=== PATIENT | female | born 1965 | race Caucasian/White ===

== ENCOUNTER 2018-09-02 19:57 | Emergency (ER) | payer OTHER ==
[2018-09-02] MEDS ORDERED: IPRATROPIUM BROM 0.5MG/2.5ML ONE (21:09)
[2018-09-02] MEDS ORDERED: NA CHLORIDE 0.9% 1,000 ML ONE (21:09)
[2018-09-02] MEDS ORDERED: ALBUTEROL 2.5 MG/3 ML NEB SOL ONE (21:09)
[2018-09-02] MEDS ORDERED: METHYLPREDNISOLONE 125 MG INJ ONE (21:09)
[2018-09-02 21:24] LABS: Absolute Lymphocytes (CBC) 2.9 K/uL (0.7-4.9); Absolute Monocytes 0.8 K/uL (0.1-1.3); Absolute Neutrophil 5.7 K/uL (1.8-8.0); Basophils % 0.4 % (0-1.3); Eosinophils % 2.3 % (0-4.4); Hematocrit 35.8 % (36.0-45.0); Lymphocytes % 29.9 % (15.3-44.8); MPV 8.2 fL (7.6-11.3); RBC Red Blood Cell Count 3.75 M/uL (3.86-4.86)
[2018-09-02 21:41] LABS: BUN Blood Urea Nitrogen 14 mg/dL (7-18); Bicarbonate 21 mmol/L (21-32); Glucose Level 99 mg/dL (74-106); Potassium 3.8 mmol/L (3.5-5.1); Sodium Level 142 mmol/L (136-145); Troponin (Emerg Dept Use Only) < 0.02 ng/mL (0.0-0.045)
--- NOTE | 2018-09-02 21:55 | RAD REPORT ---
EXAM DESCRIPTION: [place] Single View09/02/2018 9:11 pm CLINICAL HISTORY: Chest pain COMPARISON: none FINDINGS: A few areas of scarring or subsegmental atelectasis suspected within the right lung base. Left lung appears clear The heart is normal size
--- NOTE | 2018-09-02 22:04 | ER ---
Nurse's Notes [facility] Name: Scarlett Felton Age: 53 yrs Sex: Female : 1965 Arrival Date: 09/02/2018 Time: 19:58 Bed 26 Private MD: Suresh Saxena V Diagnosis: Bronchitis Presentation: 09/02 20:18 Presenting complaint: Patient states: Congestion and cough for 3 days. Transition of aj care: patient was not received from another setting of care. Onset of symptoms was August 30, 2018. Risk Assessment: Do you want to hurt yourself or someone else? Patient reports no desire to harm self or others. Initial Sepsis Screen: Does the patient meet any 2 criteria? No. Patient's initial sepsis screen is negative. Does the patient have a suspected source of infection? No. Patient's initial sepsis screen is negative. Care prior to arrival: None. 20:18 Method Of Arrival: Ambulatory aj 20:18 Acuity: ITALIA 3 aj Triage Assessment: 20:21 General: Appears in no apparent distress. comfortable, Behavior is calm, cooperative, aj appropriate for age. Pain: Denies pain. Neuro: Level of Consciousness is awake, alert, obeys commands, Oriented to person, place, time, situation, Appropriate for age. Respiratory: Reports cough that is Onset: The symptoms/episode began/occurred gradually, the patient has mild shortness of breath. Derm: Skin is intact, is healthy with good turgor, Skin is pink, warm \T\ dry. normal. 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 - Social history:: Smoking status: Patient uses tobacco products, smokes one pack cigarettes per day. - Ebola Screening: : Patient negative for fever greater than or equal to 101.5 degrees Fahrenheit, and additional compatible Ebola Virus Disease symptoms Patient denies exposure to infectious person Patient denies travel to an Ebola-affected area in the 21 days before illness onset No symptoms or risks identified at this time. Screenin:18 Abuse screen: Denies threats or abuse. Denies injuries from another. Nutritional rv screening: No deficits noted. Tuberculosis screening: No symptoms or risk factors identified. Fall Risk None identified. Assessment: 21:17 General: Appears in no apparent distress. comfortable, Behavior is calm, cooperative. rv Pain: Denies pain. Neuro: Level of Consciousness is awake, alert, obeys commands, Oriented to person, place, time, situation. Cardiovascular: Rhythm is regular. Respiratory: Airway is patent Respiratory effort is labored. GI: No signs and/or symptoms were reported involving the gastrointestinal system. : No signs and/or symptoms were reported regarding the genitourinary system. EENT: No signs and/or symptoms were reported regarding the EENT system. Derm: Skin is intact. Musculoskeletal: No signs and/or symptoms reported regarding the musculoskeletal system. 21:18 Respiratory: Breath sounds with wheezes bilaterally. rv 23:01 Reassessment: Patient appears in no apparent distress at this time. No changes from tl3 previously documented assessment. Patient and/or family updated on plan of care and expected duration. Pain level reassessed. Patient is alert, oriented x 3, equal unlabored respirations, skin warm/dry/pink. pt IV fluids complete. Vital Signs: 20:21 BP 144 / 76; Pulse 91; Resp 20; Temp 97.6; Pulse Ox 98% on R/A; Weight 74.84 kg; Height aj 5 ft. 4 in. (162.56 cm); 22:01 BP 105 / 57; Pulse 88; Resp 18; Pulse Ox 97% ; tl3 23:01 BP 118 / 80; Pulse 84; Resp 18; Pulse Ox 97% on R/A; tl3 20:21 Body Mass Index 28.32 (74.84 kg, 162.56 cm) ED Course: 19:58 Patient arrived in ED. al2 19:58 Suresh Saxena MD is Private Physician. al2 20:19 Triage completed. aj 20:21 Arm band placed on left wrist. Patient placed in an exam room. aj 20:38 Reji Vidales MD is Attending Physician. pkl 21:07 XRAY CXR (1 view) In Process Unspecified. EDMS 21:10 Initial lab(s) drawn, by me, sent to lab. Inserted saline lock: 22 gauge in right rv forearm, using aseptic technique. Blood collected. 21:18 Patient has correct armband on for positive identification. Bed in low position. Call rv light in reach. Side rails up X 1. Pulse ox on. NIBP on. 22:01 Pamela Sanchez, VICENTA is Primary Nurse. tl3 22:01 Suresh Saxena MD is Referral Physician. pkl 22:03 EKG done, by ED staff. tl3 23:01 Throat Culture Sent. tl3 23:01 No provider procedures requiring assistance completed. IV discontinued, intact, tl3 bleeding controlled, No redness/swelling at site. Pressure dressing applied. Administered Medications: 21:00 Drug: Albuterol - atroVENT (3:1) (2.5 mg - 0.5 mg) 3 ml Route: Nebulizer; rv 21:10 Drug: NS 0.9% 1000 ml Route: IV; Rate: 125 ml/hr; Site: right forearm; rv 23:00 Follow up: IV Status: Completed infusion; IV Intake: 1000ml tl3 21:10 Drug: SOLU-Medrol 125 mg Route: IVP; Site: right forearm; rv Intake: 23:00 IV: 1000ml; Total: 1000ml. tl3 Outcome: 22:02 Discharge ordered by . pkl 23:01 Discharged to home ambulatory. tl3 23:01 Condition: stable 23:01 Discharge instructions given to patient, Instructed on discharge instructions, follow up and referral plans. medication usage, Demonstrated understanding of instructions, follow-up care, medications, Prescriptions given X 2. 23:03 Patient left the ED. tl3 Signatures: Dispatcher [employer] EDMS Mar Montes De Oca RN Reji Yee MD MD pkl Charisma Weiss Tammy, VICENTA RN tl3 Matt Silva RN RN rv
--- NOTE | 2018-09-02 22:04 | EDPHYS ---
Physician Documentation [facility] Name: Scarlett Felton Age: 53 yrs Sex: Female : 1965 Arrival Date: 09/02/2018 Time: 19:58 Bed 26 Private MD: Suresh Saxena V ED Physician Reji Vidales HPI: 09/02 20:45 This 53 yrs old Female presents to ER via Ambulatory with complaints of Chest pkl Congestion, Productive Cough. 20:45 The patient or guardian reports cough, described as moderate, with no sputum. Onset: pkl The symptoms/episode began/occurred 3 day(s) ago. Associated signs and symptoms: Pertinent positives: chest pain, with cough. 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 - Social history:: Smoking status: Patient uses tobacco products, smokes one pack cigarettes per day. - Ebola Screening: : Patient negative for fever greater than or equal to 101.5 degrees Fahrenheit, and additional compatible Ebola Virus Disease symptoms Patient denies exposure to infectious person Patient denies travel to an Ebola-affected area in the 21 days before illness onset No symptoms or risks identified at this time. ROS: 20:45 Eyes: Negative for injury, pain, redness, and discharge. pkl 20:45 ENT: Positive for sore throat. 20:45 Neck: Negative for stiffness. 20:45 Cardiovascular: Positive for chest pain. 20:45 Respiratory: Positive for cough, with no reported sputum. 20:45 Abdomen/GI: Negative for abdominal pain, nausea, vomiting, and diarrhea. 20:45 Back: Negative for acute changes. 20:45 : Negative for urinary symptoms. 20:45 MS/extremity: Negative for acute changes. 20:45 Skin: Negative for rash. 20:45 Neuro: Negative for altered mental status. Exam: 20:45 Head/Face: Normocephalic, atraumatic. Eyes: Pupils equal round and reactive to light, pkl extra-ocular motions intact. Lids and lashes normal. Conjunctiva and sclera are non-icteric and not injected. Cornea within normal limits. Periorbital areas with no swelling, redness, or edema. ENT: Nares patent. No nasal discharge, no septal abnormalities noted. Tympanic membranes are normal and external auditory canals are clear. Oropharynx with no redness, swelling, or masses, exudates, or evidence of obstruction, uvula midline. Mucous membranes moist. Neck: Trachea midline, no thyromegaly or masses palpated, and no cervical lymphadenopathy. Supple, full range of motion without nuchal rigidity, or vertebral point tenderness. No Meningismus. Chest/axilla: Normal chest wall appearance and motion. Nontender with no deformity. No lesions are appreciated. Cardiovascular: Regular rate and rhythm with a normal S1 and S2. No gallops, murmurs, or rubs. Normal PMI, no JVD. No pulse deficits. 20:45 Respiratory: the patient does not display signs of respiratory distress, Respirations: normal, Breath sounds: bronchial sounds, that are mild, are scattered. 20:45 Abdomen/GI: Bowel sounds: normal, Palpation: abdomen is soft and non-tender, in all quadrants. 20:45 Back: Exam negative for acute changes. 20:45 : Exam negative for acute changes. 20:45 Musculoskeletal/extremity: Exam is negative for acute changes. 20:45 Skin: Exam negative for rash. 20:45 Neuro: Orientation: is normal, Mentation: is normal, Cranial nerves: grossly normal, Motor: is normal. Vital Signs: 20:21 BP 144 / 76; Pulse 91; Resp 20; Temp 97.6; Pulse Ox 98% on R/A; Weight 74.84 kg; Height aj 5 ft. 4 in. (162.56 cm); 22:01 BP 105 / 57; Pulse 88; Resp 18; Pulse Ox 97% ; tl3 23:01 BP 118 / 80; Pulse 84; Resp 18; Pulse Ox 97% on R/A; tl3 20:21 Body Mass Index 28.32 (74.84 kg, 162.56 cm) aj MDM: 20:38 Patient medically screened. pkl 21:47 Data reviewed: vital signs, nurses notes, lab test result(s), radiologic studies, plain pkl films. 09/02 20:45 Order name: CBC with Diff; Complete Time: 21:46 pkl 09/02 20:45 Order name: Chem 7; Complete Time: 21:46 pkl 09/02 20:45 Order name: Flu; Complete Time: 21:59 pkl 09/02 20:45 Order name: Strep; Complete Time: 21:49 pkl 09/02 20:45 Order name: Troponin (emerg Dept Use Only); Complete Time: 21:46 pkl 09/02 20:45 Order name: D-Dimer; Complete Time: 21:46 pkl 09/02 20:45 Order name: EKG; Complete Time: 20:46 pkl 09/02 20:45 Order name: XRAY CXR (1 view); Complete Time: 21:59 pkl 09/02 21:50 Order name: Throat Culture EDMS Administered Medications: 21:00 Drug: Albuterol - atroVENT (3:1) (2.5 mg - 0.5 mg) 3 ml Route: Nebulizer; rv 21:10 Drug: NS 0.9% 1000 ml Route: IV; Rate: 125 ml/hr; Site: right forearm; rv 23:00 Follow up: IV Status: Completed infusion; IV Intake: 1000ml tl3 21:10 Drug: SOLU-Medrol 125 mg Route: IVP; Site: right forearm; rv Disposition: 09/02/18 22:02 Discharged to Home. Impression: Bronchitis. - Condition is Stable. - Prescriptions for Zithromax Z- Dio 250 mg Oral Tablet - take 1 tablet by ORAL route as directed for 5 days Day 1 - take two (2) tablets one time. Day 2, 3, 4 , 5 take one (1) tablet once daily.; 6 tablet. Guaifenesin AC 10- 100 mg/5 mL Oral Liquid - take 10 milliliters by ORAL route every 8 hours As needed; 120 milliliter. - Work release form, Medication Reconciliation Form, Thank You Letter, Antibiotic Education, Prescription Opioid Use form. - Follow up: Suresh Saxena MD; When: 2 - 3 days; Reason: Re-evaluation by your physician. - Problem is new. - Symptoms have improved. Signatures: Dispatcher [employer] EDMS Montes De Oca Mar, RN RN Reji Silva MD MD pkl Pamela Sanchez RN RN tl3 Matt Silva RN RN rv Corrections: (The following items were deleted from the chart) 23:03 22:02 09/02/2018 22:02 Discharged to Home. Impression: Bronchitis. Condition is Stable. tl3 Forms are Medication Reconciliation Form, Thank You Letter, Antibiotic Education, Prescription Opioid Use. Follow up: Suresh Saxena; When: 2 - 3 days; Reason: Re-evaluation by your physician. Problem is new. Symptoms have improved. pkl
--- NOTE | 2018-09-03 14:37 | EKG ---
Test Date: 2018-09-02 Test Time: 21:54:53 Research Methods Instructor: TL MEASUREMENT RESULTS: Intervals: Rate: 86 ID: [id number] QRSD: 88 QT: 390 QTc: 466 [place]: P: 72 ID: [id number] QRS: 56 T: 50 INTERPRETIVE STATEMENTS: Normal sinus rhythm Normal ECG No previous ECG available for comparison Electronically Signed On 09-03-18 14:35:59 PROBATION AND PAROLE OFFICER by Ja Qiu
== END 2018-09-02 23:03 | disposition home or self-care (01) ==
LOC: ER 19:57
DX: J40 Bronchitis, not specified as acute or chronic (principal); F17.210 Nicotine dependence, cigarettes, uncomplicated; I10 Essential (primary) hypertension; E78.5 Hyperlipidemia, unspecified; F41.9 Anxiety disorder, unspecified; F32.9 Major depressive disorder, single episode, unspecified
CPT/HCPCS: 36415; 71045; 80048; 84484; 85025; 85379; 87070; 87081; 87804; 93005; 94640; 96361; 96374; 99284; J2930; J7030

== ENCOUNTER 2018-11-05 15:32 | Emergency (ER) | payer OTHER ==
--- NOTE | 2018-11-05 16:27 | RAD REPORT ---
EXAM DESCRIPTION: RAD - Forearm Left - 11/05/2018 4:17 pm CLINICAL HISTORY: Left forearm pain status post injury FINDINGS: No fracture is seen
--- NOTE | 2018-11-05 16:43 | ER ---
Nurse's Notes [facility] Name: Scarlett Felton Age: 53 yrs Sex: Female : 1965 Arrival Date: 11/05/2018 Time: 15:35 Bed Treatment Private MD: Diagnosis: Contusion of left wrist Presentation: 11/05 15:36 Presenting complaint: Left wrist pain x 4 days. Pt reports fall onto outstretched hands hb 4 days ago, pain became worse while pushing laundry cart yesterday. Transition of care: patient was not received from another setting of care. Onset of symptoms was November 01, 2018. Risk Assessment: Do you want to hurt yourself or someone else? Patient reports no desire to harm self or others. Care prior to arrival: Medication(s) given: Tylenol, at 0700. 15:36 Method Of Arrival: Ambulatory hb 15:36 Acuity: ITALIA 4 hb 16:49 Initial Sepsis Screen: Does the patient meet any 2 criteria? No. Patient's initial ss sepsis screen is negative. Does the patient have a suspected source of infection? No. Patient's initial sepsis screen is negative. Triage Assessment: 15:40 General: Appears in no apparent distress. Behavior is calm, cooperative. Pain: Pain hb currently is 10 out of 10 on a pain scale. EENT: No signs and/or symptoms were reported regarding the EENT system. Neuro: Level of Consciousness is awake, alert, obeys commands, Oriented to person, place, time, situation. Cardiovascular: Capillary refill < 3 seconds Patient's skin is warm and dry. Respiratory: Airway is patent Respiratory effort is even, unlabored, Respiratory pattern is regular, symmetrical. GI: No signs and/or symptoms were reported involving the gastrointestinal system. : No signs and/or symptoms were reported regarding the genitourinary system. Derm: Skin is intact, is healthy with good turgor. Musculoskeletal: Reports pain in left wrist. 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 - Social history:: Smoking status: Patient/guardian denies using tobacco. - Ebola Screening: : No symptoms or risks identified at this time. Screenin:45 Abuse screen: Denies threats or abuse. Denies injuries from another. Nutritional hb screening: No deficits noted. Tuberculosis screening: No symptoms or risk factors identified. Fall Risk None identified. Assessment: 15:45 General: see triage assessment. hb 16:48 Reassessment: Patient appears in no apparent distress at this time. Patient and/or ss family updated on plan of care and expected duration. Pain level reassessed. Patient is alert, oriented x 3, equal unlabored respirations, skin warm/dry/pink. prefromed wrist splint applied as ordered. Pt is grateful for care received. Vital Signs: 15:38 BP 141 / 86; Pulse 88; Resp 16; Temp 97.6; Pulse Ox 100% on R/A; Pain 10/10; hb ED Course: 15:35 Patient arrived in ED. mr 15:37 Triage completed. hb 15:38 Arm band placed on right wrist. hb 15:45 Jeremie Medina PA is PHCP. jr8 15:45 Sidney London MD is Attending Physician. jr8 15:45 Patient has correct armband on for positive identification. Call light in reach. hb 16:17 Forearm Left XRAY In Process Unspecified. EDKY 16:41 Claire Mccullough, VICENTA is Primary Nurse. ss 16:42 No provider procedures requiring assistance completed. Patient did not have IV access ss during this emergency room visit. Velcro wrist splint applied to left wrist. 16:43 Oscar Parker MD is Referral Physician. jr8 Administered Medications: No medications were administered Outcome: 16:43 Discharge ordered by . jr8 16:49 Discharged to home ambulatory. ss 16:49 Condition: good 16:49 Discharge instructions given to patient, Instructed on discharge instructions, follow up and referral plans. medication usage, Demonstrated understanding of instructions, follow-up care, medications, Prescriptions given X 1. 16:50 Patient left the ED. ss Signatures: Dispatcher [employer] [facility] Regine Tomas mr Claire Mccullough, RN RN ss Jeremie Medina PA PA jr8 Jossie Costa, RN RN hb
--- NOTE | 2018-11-05 16:44 | EDPHYS ---
Physician Documentation [facility] Name: Scarlett Felton Age: 53 yrs Sex: Female : 1965 Arrival Date: 11/05/2018 Time: 15:35 Bed Treatment Private MD: ED Physician Sidney London HPI: 11/05 16:38 This 53 yrs old Female presents to ER via Ambulatory with complaints of Wrist jr8 Injury. 16:38 The patient or guardian reports decreased range of motion, pain, tenderness. The jr8 complaints affect the left wrist diffusely. Onset: The symptoms/episode began/occurred acutely. Modifying factors: The symptoms are alleviated by nothing, the symptoms are aggravated by movement. Associated signs and symptoms: The patient has no apparent associated signs or symptoms. The patient has not experienced similar symptoms in the past. The patient has not recently seen a physician. Patient stated that she fell going up the stairs the other day. Caught herself with left palm. Stated that while at work later that day felt a pop to CMC region. Since then has had a lot of pain with decreased ROM due to pain. Denies any other trauma . 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 - Social history:: Smoking status: Patient/guardian denies using tobacco. - Ebola Screening: : No symptoms or risks identified at this time. ROS: 16:38 Eyes: Negative for injury, pain, redness, and discharge, ENT: Negative for injury, jr8 pain, and discharge, Neck: Negative for injury, pain, and swelling, Cardiovascular: Negative for chest pain, palpitations, and edema, Respiratory: Negative for shortness of breath, cough, wheezing, and pleuritic chest pain, Abdomen/GI: Negative for abdominal pain, nausea, vomiting, diarrhea, and constipation, Back: Negative for injury and pain, Skin: Negative for injury, rash, and discoloration, Neuro: Negative for headache, weakness, numbness, tingling, and seizure. 16:38 MS/extremity: Positive for decreased range of motion, pain, tenderness, of the left wrist. Exam: 16:38 Eyes: Pupils equal round and reactive to light, extra-ocular motions intact. Lids and jr8 lashes normal. Conjunctiva and sclera are non-icteric and not injected. Cornea within normal limits. Periorbital areas with no swelling, redness, or edema. ENT: Nares patent. No nasal discharge, no septal abnormalities noted. Tympanic membranes are normal and external auditory canals are clear. Oropharynx with no redness, swelling, or masses, exudates, or evidence of obstruction, uvula midline. Mucous membranes moist. Neck: Trachea midline, no thyromegaly or masses palpated, and no cervical lymphadenopathy. Supple, full range of motion without nuchal rigidity, or vertebral point tenderness. No Meningismus. Cardiovascular: Regular rate and rhythm with a normal S1 and S2. No gallops, murmurs, or rubs. Normal PMI, no JVD. No pulse deficits. Respiratory: Lungs have equal breath sounds bilaterally, clear to auscultation and percussion. No rales, rhonchi or wheezes noted. No increased work of breathing, no retractions or nasal flaring. Abdomen/GI: Soft, non-tender, with normal bowel sounds. No distension or tympany. No guarding or rebound. No evidence of tenderness throughout. Back: No spinal tenderness. No costovertebral tenderness. Full range of motion. Skin: Warm, dry with normal turgor. Normal color with no rashes, no lesions, and no evidence of cellulitis. Neuro: Awake and alert, GCS 15, oriented to person, place, time, and situation. Cranial nerves II-XII grossly intact. Motor strength 5/5 in all extremities. Sensory grossly intact. Cerebellar exam normal. Normal gait. 16:38 Musculoskeletal/extremity: Extremities: grossly normal except: noted in the left wrist: Patient without swelling, bruising, or any other external signs of trauma to left hand or wrist. Pain and tenderness to the proximal phalanx joint and CMC joint. , Circulation is intact in all extremities. Sensation intact. Patient able to abduct, adduct, flex, and extend thumb . Vital Signs: 15:38 BP 141 / 86; Pulse 88; Resp 16; Temp 97.6; Pulse Ox 100% on R/A; Pain 10/10; hb Procedures: 16:38 Splinting: Splint applied to left wrist using wrist splint, applied by nurse. Examined jr8 by me, post splint application: neurovascular intact, 2+ distal pulses palpable, brisk capillary refill noted, Patient tolerated well. MDM: 15:45 Patient medically screened. jr8 16:38 Data reviewed: vital signs, nurses notes, radiologic studies, plain films, and as a jr8 result, I will discharge patient. Data interpreted: Pulse oximetry: on room air is 100 %. Interpretation: normal. Counseling: I had a detailed discussion with the patient and/or guardian regarding: the historical points, exam findings, and any diagnostic results supporting the discharge/admit diagnosis, radiology results, the need for outpatient follow up, a orthopedic surgeon, to return to the emergency department if symptoms worsen or persist or if there are any questions or concerns that arise at home. ED course: Discussed with patient that there is no evident bony abnormality at this time. Will splint and put on NSAID. Give it one week. If not healing to f/u with hand for tendon and cartilage derangement . 11/05 15:55 Order name: Forearm Left XRAY; Complete Time: 16:37 snw 11/05 16:37 Order name: Splint; Complete Time: 16:41 jr8 Administered Medications: No medications were administered Disposition: 11/06 06:34 Co-signature as Attending Physician, Sidney London MD I agree with the assessment and kdr plan of care. Disposition: 11/05/18 16:43 Discharged to Home. Impression: Contusion of left wrist. - Condition is Stable. - Discharge Instructions: Contusion, Wrist Pain. - Prescriptions for Mobic 7.5 mg Oral Tablet - take 1 tablet by ORAL route once daily take with food; 20 tablet. - Medication Reconciliation Form, Thank You Letter, Antibiotic Education, Prescription Opioid Use form. - Follow up: Oscar Parker MD; When: 7 - 10 days; Reason: Recheck today's complaints, Continuance of care, Re-evaluation by your physician. - Problem is new. - Symptoms have improved. Signatures: Dispatcher [employer] EDMS Osmel Londonin, MD MD [facility] Claire Mccullough RN RN Jeremie Medina PA PA jr8 Jossie Costa, RN RN Corrections: (The following items were deleted from the chart) 11/05 16:50 16:43 11/05/2018 16:43 Discharged to Home. Impression: Contusion of left wrist. ss Condition is Stable. Forms are Medication Reconciliation Form, Thank You Letter, Antibiotic Education, Prescription Opioid Use. Follow up: Oscar Parker; When: 7 - 10 days; Reason: Recheck today's complaints, Continuance of care, Re-evaluation by your physician. Problem is new. Symptoms have improved. jr8
== END 2018-11-05 16:50 | disposition home or self-care (01) ==
LOC: ER 15:32
PROC: 2W3DX1Z Immobilization of Left Lower Arm using Splint (ICD-10-PCS; principal; 2018-11-05)
DX: S60.212A Contusion of left wrist, initial encounter (principal); W10.9XXA Fall (on) (from) unspecified stairs and steps, initial encounter; F41.9 Anxiety disorder, unspecified; F32.9 Major depressive disorder, single episode, unspecified; E78.5 Hyperlipidemia, unspecified; I10 Essential (primary) hypertension
CPT/HCPCS: 99283

== ENCOUNTER 2018-12-03 23:20 | Emergency (ER) | payer OTHER ==
--- NOTE | 2018-12-04 00:32 | ER ---
Nurse's Notes [facility] Name: Scarlett Felton Age: 53 yrs Sex: Female : 1965 Arrival Date: 12/03/2018 Time: 23:25 Bed Treatment Private MD: Suresh Saxena V Diagnosis: Ventral hernia Presentation: 12/03 23:51 Presenting complaint: Patient states: she has a hernia and went to berry picker a 12 pack of aa1 soda at the store yesterday and it's now causing her pain. Transition of care: patient was not received from another setting of care. Onset of symptoms was December 02, 2018. Risk Assessment: Do you want to hurt yourself or someone else? Patient reports no desire to harm self or others. Initial Sepsis Screen: Does the patient meet any 2 criteria? No. Patient's initial sepsis screen is negative. Does the patient have a suspected source of infection? No. Patient's initial sepsis screen is negative. Care prior to arrival: None. 23:51 Method Of Arrival: Ambulatory aa1 23:51 Acuity: ITALIA 3 aa1 Triage Assessment: 23:53 General: Appears in no apparent distress. comfortable, Behavior is calm, cooperative, aa1 appropriate for age. Pain: Complains of pain in abdomen. 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 - Social history:: Smoking status: Patient uses tobacco products, smokes one-half pack cigarettes per day. - Ebola Screening: : No symptoms or risks identified at this time. Screenin/28 00:20 Abuse screen: Denies threats or abuse. Denies injuries from another. Nutritional aa1 screening: No deficits noted. Tuberculosis screening: No symptoms or risk factors identified. Fall Risk None identified. Assessment: 00:20 General: Appears in no apparent distress. comfortable, Behavior is calm, cooperative, aa1 appropriate for age. Pain: Complains of pain in paraumbilical area Pain began 1 day ago. Is continuous. Neuro: Level of Consciousness is awake, alert, obeys commands, Gait is steady. Respiratory: Airway is patent Respiratory effort is even, unlabored, Respiratory pattern is regular, symmetrical. GI: Abdomen is non-distended, Abd is soft X 4 quads Reports lower abdominal pain, Patient currently denies diarrhea, nausea, vomiting. : No signs and/or symptoms were reported regarding the genitourinary system. EENT: No signs and/or symptoms were reported regarding the EENT system. Derm: Skin is intact, is healthy with good turgor, Skin is pink, warm \T\ dry. Musculoskeletal: Circulation, motion, and sensation intact. Capillary refill < 3 seconds. 00:50 Reassessment: Patient appears in no apparent distress at this time. Patient is alert, aa1 oriented x 3, equal unlabored respirations, skin warm/dry/pink. Discussed d/c \T\ f/u instructions with pt; denies questions or concerns at this time. Vital Signs: 12/03 23:53 BP 111 / 72; Pulse 76; Resp 18; Temp 97.8; Pulse Ox 97% on R/A; Weight 74.84 kg; Height aa1 5 ft. 4 in. (162.56 cm); Pain 9/10; 23:53 Body Mass Index 28.32 (74.84 kg, 162.56 cm) aa1 ED Course: 23:25 Patient arrived in ED. es 23:25 Suresh Saxena MD is Private Physician. es 23:52 Triage completed. aa1 23:53 Arm band placed on right wrist. Patient placed in waiting room, Patient notified of aa1 wait time. 12/04 00:15 Isabella Lopse, RN is Primary Nurse. ca1 00:20 Patient has correct armband on for positive identification. Bed in low position. Call aa1 light in reach. 00:20 No provider procedures requiring assistance completed. Patient did not have IV access aa1 during this emergency room visit. 00:24 Marcellus Pizano MD is Attending Physician. gs 00:30 Adan Wu MD is Referral Physician. gs Administered Medications: 00:49 Drug: TORadol 30 mg Route: IM; Site: left deltoid; aa1 00:53 Follow up: Response: No adverse reaction; Medication administered at discharge. aa1 Outcome: 00:31 Discharge ordered by . 00:52 Discharged to home ambulatory. aa1 00:52 Condition: good 00:52 Discharge instructions given to patient, Instructed on discharge instructions, follow up and referral plans. medication usage, Demonstrated understanding of instructions, follow-up care, medications. 00:53 Patient left the ED. aa1 Signatures: Keli Long RN RN aa1 Zoya Terry Gregory, MD MD gs Isabella Lopes RN RN ca1
--- NOTE | 2018-12-04 00:32 | EDPHYS ---
Physician Documentation [facility] Name: Scarlett Felton Age: 53 yrs Sex: Female : 1965 Arrival Date: 12/03/2018 Time: 23:25 Bed Treatment Private MD: Suresh Saxena V ED Physician Marcellus Pizano HPI: 12/04 00:29 This 53 yrs old Female presents to ER via Ambulatory with complaints of gs HERNIA PAIN. 00:29 Onset: The symptoms/episode began/occurred yesterday. The symptoms are described as gs crampy, sharp. Modifying factors: The symptoms are alleviated by nothing, the symptoms are aggravated by touching the area. Severity of pain: At its worst the pain was severe in the emergency department the pain is unchanged. The patient has experienced similar episodes in the past, a few times. 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 - Social history:: Smoking status: Patient uses tobacco products, smokes one-half pack cigarettes per day. - Ebola Screening: : No symptoms or risks identified at this time. ROS: 12/04 00:29 All other systems are negative. gs Exam: 00:29 Head/Face: Normocephalic, atraumatic. Eyes: Pupils equal round and reactive to light, gs extra-ocular motions intact. Lids and lashes normal. Conjunctiva and sclera are non-icteric and not injected. Cornea within normal limits. Periorbital areas with no swelling, redness, or edema. ENT: Nares patent. No nasal discharge, no septal abnormalities noted. Tympanic membranes are normal and external auditory canals are clear. Oropharynx with no redness, swelling, or masses, exudates, or evidence of obstruction, uvula midline. Mucous membranes moist. Neck: Trachea midline, no thyromegaly or masses palpated, and no cervical lymphadenopathy. Supple, full range of motion without nuchal rigidity, or vertebral point tenderness. No Meningismus. Chest/axilla: Normal chest wall appearance and motion. Nontender with no deformity. No lesions are appreciated. Cardiovascular: Regular rate and rhythm with a normal S1 and S2. No gallops, murmurs, or rubs. Normal PMI, no JVD. No pulse deficits. Respiratory: Lungs have equal breath sounds bilaterally, clear to auscultation and percussion. No rales, rhonchi or wheezes noted. No increased work of breathing, no retractions or nasal flaring. Back: No spinal tenderness. No costovertebral tenderness. Full range of motion. Skin: Warm, dry with normal turgor. Normal color with no rashes, no lesions, and no evidence of cellulitis. MS/ Extremity: Pulses equal, no cyanosis. Neurovascular intact. Full, normal range of motion. Neuro: Awake and alert, GCS 15, oriented to person, place, time, and situation. Cranial nerves II-XII grossly intact. Motor strength 5/5 in all extremities. Sensory grossly intact. Cerebellar exam normal. Normal gait. 00:29 Constitutional: The patient appears alert, awake, uncomfortable. 00:29 Abdomen/GI: Palpation: abdomen is soft and non-tender, in all quadrants, Hernia: noted in the paraumbilical area, tenderness, that is mild, REDUCED BY ME WITHOUT DIFFICULTY. Vital Signs: 12/03 23:53 BP 111 / 72; Pulse 76; Resp 18; Temp 97.8; Pulse Ox 97% on R/A; Weight 74.84 kg; Height aa1 5 ft. 4 in. (162.56 cm); Pain 9/10; 23:53 Body Mass Index 28.32 (74.84 kg, 162.56 cm) aa1 MDM: 12/04 00:28 Patient medically screened. 00:29 Data reviewed: vital signs, nurses notes. Counseling: I had a detailed discussion with the patient and/or guardian regarding: the historical points, exam findings, and any diagnostic results supporting the discharge/admit diagnosis, the need for outpatient follow up, a general surgeon. Response to treatment: the patient's symptoms have resolved after treatment, and as a result, I will discharge patient. Administered Medications: 00:49 Drug: TORadol 30 mg Route: IM; Site: left deltoid; aa1 00:53 Follow up: Response: No adverse reaction; Medication administered at discharge. aa1 Disposition: 12/04/18 00:31 Discharged to Home. Impression: Ventral hernia. - Condition is Stable. - Discharge Instructions: Hernia, Adult, [id number]. - Medication Reconciliation Form, Thank You Letter, Antibiotic Education, Prescription Opioid Use form. - Follow up: Adan Wu MD; When: 1 - 2 days; Reason: Re-evaluation by your physician. Signatures: Keli Long RN RN aa1 Marcellus Pizano MD MD Corrections: (The following items were deleted from the chart) 00:53 00:31 12/04/2018 00:31 Discharged to Home. Impression: Ventral hernia. Condition is aa1 Stable. Forms are Medication Reconciliation Form, Thank You Letter, Antibiotic Education, Prescription Opioid Use. Follow up: Adan Wu; When: 1 - 2 days; Reason: Re-evaluation by your physician. gs
[2018-12-04] MEDS ORDERED: KETOROLAC 30 MG/ML INJ ONE (00:59)
== END 2018-12-04 00:53 | disposition home or self-care (01) ==
LOC: ER 23:20
DX: K43.9 Ventral hernia without obstruction or gangrene (principal); F17.210 Nicotine dependence, cigarettes, uncomplicated; F41.9 Anxiety disorder, unspecified; F32.9 Major depressive disorder, single episode, unspecified; E78.5 Hyperlipidemia, unspecified; I10 Essential (primary) hypertension
CPT/HCPCS: 96372; 99283

== ENCOUNTER 2018-12-12 06:24 | Day surgery (SDC) | payer OTHER ==
[2018-12-09 14:30] LABS: Absolute Lymphocytes (CBC) 1.6 K/uL (0.7-4.9); Absolute Monocytes 0.5 K/uL (0.1-1.3); Absolute Neutrophil 5.1 K/uL (1.8-8.0); Basophils % 0.5 % (0-1.3); Eosinophils % 3.2 % (0-4.4); Hematocrit 39.4 % (36.0-45.0); Lymphocytes % 20.9 % (15.3-44.8); MPV 8.2 fL (7.6-11.3); Monocytes % 6.8 % (3.3-12.3); RBC Red Blood Cell Count 4.07 M/uL (3.86-4.86)
[2018-12-09 15:15] LABS: Bilirubin Total 0.2 mg/dL (0.2-1.0); Potassium 4.3 mmol/L (3.5-5.1); Protein, Total 7.8 g/dL (6.4-8.2)
[2018-12-12] MEDS ORDERED: Ringers Lactate 1,000 ML IV ONE (06:52)
[2018-12-12] MEDS ORDERED: CEFAZOLIN/SWI 1gm 1 GM/10 ML SYR ONE (06:52)
--- NOTE | 2018-12-12 07:30 | P.HP ---
Patient History Date of Service: 12/12/18 History of Present Illness: This 53-year-old female had an sudden onset of periumbilical pain with the appearance of a mass. She went to the emergency room for evaluation treatment. They were able to reduce her hernia giving her immediate relief of her pain as an outpatient and is now scheduled to have her umbilical hernia repaired. Allergies No Known Allergies Allergy (Verified 12/09/18 13:21) Home medications list reviewed: Yes Home Medications: ALPRAZolam [Xanax] 1 mg PO TID PRN 12/10/18 Atorvastatin Calcium [Lipitor] 20 mg PO BEDTIME 12/10/18 Citalopram Hydrobromide [Citalopram HBr] 40 mg PO DAILY 12/10/18 Dicyclomine [Bentyl] 10 mg PO DAILY 12/10/18 Gabapentin [Gralise] 600 mg PO TID 12/10/18 Hydrocodone Bit/Acetaminophen [Hydrocodon-Acetaminophen 5-325] 1 each PO Q6HP PRN 12/10/18 Lisinopril [Prinivil] 20 mg PO [id number] 12/10/18 Multivitamin/Iron/Folic Acid [Centrum Adults Tablet] 1 each PO DAILY 12/10/18 buPROPion HCl [Bupropion HCl Sr] 150 mg PO DAILY 12/10/18 - Past Medical/Surgical History -: Hypertension -: Previous tubal ligation - Social History Place of Residence: Home Review of Systems 10-point ROS is otherwise unremarkable Physical Examination - Vital Signs Temperature: 98.0 F Blood Pressure: 118/60 Pulse: 70 Respirations: 18 - Physical Exam General: Alert HEENT: Other, Sclerae nonicteric Respiratory: Normal air movement Cardiovascular: Normal S1 S2 Gastrointestinal: No tenderness, No masses, No rebound (Has a mass on her umbilicus consistent with an incarcerated umbilical hernia) Rectal: Deferred - Studies Within normal limits Assessment and Plan - Plan This patient has umbilical hernia. We have discussed surgical options with her. A laparoscopic repair of her umbilical hernia with mesh. This procedure have been discussed. The possibility of bleeding, infection, injury to bowel and surrounding structures was explained. The possibility of recurrence and complications of adhesions were explained. Fistula formation and infection were also outlined. She understands and wants us to proceed. Discharge Plan: Home Plan to discharge in: 24 Hours - Advance Directives Does patient have a Living Will: No Does patient have a Durable POA for Healthcare: No
[2018-12-12] MEDS ORDERED: PROPOFOL 200 MG/20 ML VIAL IV ONE (07:35)
[2018-12-12] MEDS ORDERED: FENTANYL CITR 100 MCG/2 ML ONE (07:35)
[2018-12-12] MEDS ORDERED: MIDAZOLAM HCL 2 MG/2 ML INJ ONE (07:36)
[2018-12-12] MEDS ORDERED: LIDOCAINE 2% MPF 5 ML VIAL ONE (07:36)
[2018-12-12] MEDS ORDERED: ONDANSETRON 4 MG/2 ML VIAL ONE (07:37)
[2018-12-12] MEDS ORDERED: ROCURONIUM 50 MG/5 ML VIAL IV ONE (07:37)
[2018-12-12] MEDS ORDERED: EPHEDRINE SULF 50 MG/10 ML SYR ONE (08:09)
[2018-12-12] MEDS ORDERED: NEOSTIGMINE 1 MG/ML -10 ML VIAL ONE (09:02)
[2018-12-12] MEDS ORDERED: GLYCOPYRROLATE 0.2 MG/ML SYR ONE (09:02)
--- NOTE | 2018-12-12 09:03 | P.OP ---
Preoperative diagnosis: Incarcerated umbilical hernia Postoperative diagnosis: The same Primary procedure: Laparoscopic reduction and repair of incarcerated hernia Anesthesia: General Estimated blood loss: Less than 10 cc Specimen: None were sent Operative Technique: The patient brought the operating room and placed supine on the table endotracheal anesthesia, the area of the abdomen was prepped with a DuraPrep solution, and she was draped in usual aseptic manner Attention was turned towards the left upper quadrant A skin incision was made. This brought down through the skin and subcutaneous tissue. The Visiport was now used to enter the peritoneal cavity and created pneumoperitoneum to approximately 12 mm of mercury. Under direct vision another 5 mm trocar was placed in the left lower quadrant. We were able to inspect the anterior abdominal wall. We could see that there was a large amount of omentum that was protruding through a defect just at the umbilicus. Applying external pressure and internal traction we were able to manipulate this back into the peritoneal cavity. The tissue itself is was viable. We now identified part of our defect. On grasping inside this we were able to retract the hernia sac. The hernia actually extended upwards for distance of approximately 2 cm. The peritoneum in this area was cleared off. Attention was turned towards the lower abdominal wall. There were some adhesions from previous surgeries that were there these light adhesions were taken down using blunt sharp dissection. A 6 inch piece of mesh was now delivered into the peritoneal cavity. Stay sutures that had been placed on the poles of the mesh were used to elevate the anterior abdominal wall. Using the Protac of the Maxair was now affixed to the anterior abdominal wall. It was necessary to place a further 5 mm trocar on the left side as well as a right to ensure we had good fixation of this mesh. The mesh having been stuck down to the anterior abdominal wall. There was no evidence of any lifts or aj in the mesh at this time. The pneumoperitoneum was collapsed after having placed our fashion closure stitch with the Endo Close in the left upper quadrant. The pneumoperitoneum having been collapsed, the trocars removed, the suture was tied, and sierra were applied to the skin. At the end of the procedure the patient was in a stable condition when sent to the recovery room needle sponge instrument count were correct. No drains were placed. No specimens were sent Complications: None Transferred to: Recovery Room Condition: Good
[2018-12-12] MEDS: HYDROMORPHONE HCL 2 MG/ML inj ONE ×3 (09:10→09:25)
[2018-12-12] MEDS ORDERED: KETOROLAC 30 MG/ML INJ ONE (09:12)
[2018-12-12] MEDS: Ringers Lactate 1,000 ML IV SCH ×3 (09:33→19:00)
[2018-12-12] MEDS: HYDROMORPHONE HCL 1 MG/ML INJ ONE ×2 (09:40→10:00)
[2018-12-12] MEDS: HYDROCODONE/APAP 7.5/325 MG TAB PO PRN ×2 (12:55→23:37)
[2018-12-12] MEDS ORDERED: PNEUMOCOCCAL VACCINE 0.5 ML IMVAC ONE (14:00)
[2018-12-12] MEDS: ONDANSETRON 4 MG/2 ML VIAL IV PRN ×2 (15:24→20:48)
[2018-12-12] MEDS: MORPHINE 4 MG/ML SYR IV PRN ×2 (15:24→20:48)
[2018-12-12] MEDS ORDERED: ALPRAZOLAM 1 MG TABLET PO PRN (21:09)
[2018-12-12] MEDS ORDERED: HYDROCODONE/APAP 5/325 MG TAB PO PRN (21:09)
[2018-12-13] MEDS: Ringers Lactate 1,000 ML IV SCH (00:46)
[2018-12-13] MEDS: HYDROCODONE/APAP 7.5/325 MG TAB PO PRN ×3 (04:14→13:59)
[2018-12-13] MEDS ORDERED: LISINOPRIL 20 MG TAB PO SCH (06:00)
[2018-12-13] MEDS: HOME MED 1 EA UNK (Gabapentin [Gralise] 600 MG) PO SCH ×2 (08:44→14:00)
[2018-12-13] MEDS ORDERED: HOME MED 1 EA UNK (Citalopram Hydrobromide [Citalopram Hbr] 40 MG) PO SCH (09:00)
[2018-12-13] MEDS ORDERED: DICYCLOMINE HCL 10 MG CAP PO SCH (09:00)
[2018-12-13] MEDS ORDERED: BUPROPRION HCL S.R. 150MG TAB PO SCH (09:00)
[2018-12-13] MEDS ORDERED: ATORVASTATIN 20 MG TAB PO SCH (21:00)
--- NOTE | 2018-12-16 11:08 | EKG ---
Test Date: 2018-12-09 Test Time: 13:28:08 Stock Sorter: ANGEL MEASUREMENT RESULTS: Intervals: Rate: 74 MI: 132 QRSD: 88 QT: 382 QTc: 424 [place]: P: 71 MI: 132 QRS: 49 T: 58 INTERPRETIVE STATEMENTS: Normal sinus rhythm Normal ECG Compared to ECG 09/02/2018 21:54:53 No significant changes Electronically Signed On 12-09-18 16:59:36 CDT by Enio Link
== END 2018-12-13 14:10 | disposition home or self-care (01) ==
LOC: OR 06:24 → 2ND 11:29 → OR 12-13 14:10
PROVIDERS: ATTEND Surgery
PROC: 0WUF4JZ Supplement Abdominal Wall with Synthetic Substitute, Percutaneous Endoscopic Approach (ICD-10-PCS; principal; 2018-12-12 07:30)
DX: K42.0 Umbilical hernia with obstruction, without gangrene (principal); I10 Essential (primary) hypertension; F17.200 Nicotine dependence, unspecified, uncomplicated; Z98.51 Tubal ligation status
CPT/HCPCS: 36415; 80053; 85025; 93005; J0690; J1170; J2250; J2405; J2704; J2710; J3010

== ENCOUNTER 2019-05-16 23:03 | Emergency (ER) | payer OTHER ==
--- NOTE | 2019-05-16 23:56 | ER ---
Nurse's Notes [facility] Name: Scarlett Felton Age: 53 yrs Sex: Female : 1965 Arrival Date: 05/16/2019 Time: 23:07 Bed 16 Private MD: Diagnosis: Acute upper respiratory infection, unspecified Presentation: 05/16 23:05 Presenting complaint: Patient states: that she has had a cough, chest congestion, runny fc nose, sore throat and sinus pressure since 3 days ago. Pt also states that she has chest pain when she takes a deep breath. Transition of care: patient was not received from another setting of care. Onset of symptoms was May 13, 2019. Risk Assessment: Do you want to hurt yourself or someone else? Patient reports no desire to harm self or others. Initial Sepsis Screen: Does the patient meet any 2 criteria? HR > 90 bpm. Yes Does the patient have a suspected source of infection? No. Patient's initial sepsis screen is negative. Care prior to arrival: Medication(s) given: Mucinex and another cold medication. 23:05 Method Of Arrival: Ambulatory fc 23:05 Acuity: ITALIA 3 fc Triage Assessment: 23:00 General: Appears in no apparent distress. Behavior is calm, cooperative, appropriate ao for age. 23:00 Pain: Complains of pain in chest. EENT: Throat is reddened. Neuro: Level of ao Consciousness is awake, alert, obeys commands, Oriented to person, place, time, situation, Appropriate for age Moves all extremities. Full function Speech is normal. Cardiovascular: Capillary refill < 3 seconds Patient's skin is warm and dry. Respiratory: Airway is patent Respiratory effort is even, unlabored, Respiratory pattern is regular, symmetrical. GI: Abdomen is non-distended. : No signs and/or symptoms were reported regarding the genitourinary system. Derm: Skin is intact. Musculoskeletal: Circulation, motion, and sensation intact. Range of motion:. 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 fc Historical: - Allergies: 23: No Known Allergies; fc - Home Meds: 23:27 gabapentin 600 mg oral tab 1 tab 3 times per day [Active]; lisinopril 20 mg Oral tab 1 fc tab once daily [Active]; atorvastatin 20 mg oral tab 1 tab once daily [Active]; citalopram 40 mg tab 1 tab once daily [Active]; dicyclomine 10 mg oral cap 1 cap daily [Active]; Xanax 1 mg oral tab 1 tab daily [Active]; bupropion HCl 150 mg Oral TbER 1 tab once daily [Active]; multivitamin oral tab daily [Active]; - PMHx: 23:27 Anxiety; Depression; Hernia; Hyperlipidemia; Chronic pain; Hypertension; fc - PSHx: 23:27 Cholecystectomy; Hernia repair; Uterine Ablation; rotator cuff on right; fc - Immunization history:: Last tetanus immunization: up to date. - Social history:: Smoking status: Patient uses tobacco products, smokes one-half pack cigarettes per day, Patient/guardian denies using street drugs. - Ebola Screening: : Patient negative for fever greater than or equal to 101.5 degrees Fahrenheit, and additional compatible Ebola Virus Disease symptoms Patient denies exposure to infectious person Patient denies travel to an Ebola-affected area in the 21 days before illness onset. Screenin:23 Abuse screen: Denies threats or abuse. Nutritional screening: No deficits noted. Tuberculosis screening: No symptoms or risk factors identified. Fall Risk None identified. Vital Signs: 00:06 BP 152 / 84; Pulse 98; Resp 20; Pulse Ox 96% on R/A; ao 23:05 BP 175 / 87; Pulse 101; Resp 20; Temp 99.9(O); Pulse Ox 98% on R/A; Weight 65.77 kg fc (R); Height 5 ft. 4 in. (162.56 cm); Pain 4/10; 23:05 Body Mass Index 24.89 (65.77 kg, 162.56 cm) ED Course: 23:05 Arm band placed on Patient placed in an exam room, on a stretcher. 23:05 Patient has correct armband on for positive identification. Placed in gown. Bed in low fc position. Call light in reach. Pulse ox on. NIBP on. 23:05 No provider procedures requiring assistance completed. fc 23:07 Patient arrived in ED. ds1 23:12 Lucy Moreno FNP is PHCP. nh 23:12 Marcellus Pizano MD is Attending Physician. nh 23:21 Triage completed. fc 23:24 Brice Chatman, VICENTA is Primary Nurse. ao 23:36 Chest Pa And Lat (2 Views) XRAY In Process Unspecified. EDMS 05/17 00:11 Patient did not have IV access during this emergency room visit. ao Administered Medications: No medications were administered Outcome: 05/16 23:55 Discharge ordered by . ar 05/17 00:10 Discharged to home ambulatory. ao Condition: stable Discharge instructions given to patient, Instructed on discharge instructions, follow up and referral plans. Demonstrated understanding of instructions, follow-up care, medications, Prescriptions given X 2. 00:12 Patient left the ED. ao Signatures: Dispatcher [employer] EDNM Lucy Moreno, COMMUNICATIONS OFFICER COMMUNICATIONS OFFICER ar Nan Núñez RN RN Cathy Bonner ds1 Brice Chatman RN RN ao
--- NOTE | 2019-05-16 23:57 | EDPHYS ---
Physician Documentation [facility] Name: Scarlett Felton Age: 53 yrs Sex: Female : 1965 Arrival Date: 05/16/2019 Time: 23:07 Bed 16 Private MD: ED Physician Marcellus Pizano HPI: 05/16 23:53 This 53 yrs old Female presents to ER via Ambulatory with complaints of Sinus nh Congestion, Chest Congestion. 23:53 The patient or guardian reports cough, that is intermittent, described as moderate, nh with productive sputum, that is green, flu symptoms, arthralgias, low-grade fever. Onset: The symptoms/episode began/occurred yesterday. Severity of symptoms: At their worst the symptoms were moderate, just prior to arrival, in the emergency department the symptoms are unchanged. Modifying factors: The symptoms are alleviated by nothing, the symptoms are aggravated by nothing. Associated signs and symptoms: The patient has no apparent associated signs or symptoms. The patient has not experienced similar symptoms in the past. The patient has not recently seen a physician. 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 fc Historical: - Allergies: 23:27 No Known Allergies; fc - Home Meds: 23:27 gabapentin 600 mg oral tab 1 tab 3 times per day [Active]; lisinopril 20 mg Oral tab 1 fc tab once daily [Active]; atorvastatin 20 mg oral tab 1 tab once daily [Active]; citalopram 40 mg tab 1 tab once daily [Active]; dicyclomine 10 mg oral cap 1 cap daily [Active]; Xanax 1 mg oral tab 1 tab daily [Active]; bupropion HCl 150 mg Oral TbER 1 tab once daily [Active]; multivitamin oral tab daily [Active]; - PMHx: 23:27 Anxiety; Depression; Hernia; Hyperlipidemia; Chronic pain; Hypertension; fc - PSHx: 23:27 Cholecystectomy; Hernia repair; Uterine Ablation; rotator cuff on right; fc - Immunization history:: Last tetanus immunization: up to date. - Social history:: Smoking status: Patient uses tobacco products, smokes one-half pack cigarettes per day, Patient/guardian denies using street drugs. - Ebola Screening: : Patient negative for fever greater than or equal to 101.5 degrees Fahrenheit, and additional compatible Ebola Virus Disease symptoms Patient denies exposure to infectious person Patient denies travel to an Ebola-affected area in the 21 days before illness onset. ROS: 23:53 Eyes: Negative for injury, pain, redness, and discharge, Neck: Negative for injury, nh pain, and swelling, Cardiovascular: Negative for chest pain, palpitations, and edema, Abdomen/GI: Negative for abdominal pain, nausea, vomiting, diarrhea, and constipation, Back: Negative for injury and pain, : Negative for injury, bleeding, discharge, and swelling, MS/Extremity: Negative for injury and deformity, Skin: Negative for injury, rash, and discoloration, Neuro: Negative for headache, weakness, numbness, tingling, and seizure. 23:53 Constitutional: Positive for fever. 23:53 ENT: Positive for nasal discharge, sinus congestion, sinus pain, sore throat. 23:53 Respiratory: Positive for cough, with green sputum. Exam: 23:53 Constitutional: This is a well developed, well nourished patient who is awake, alert, nh and in no acute distress. Head/Face: Normocephalic, atraumatic. Eyes: Pupils equal round and reactive to light, extra-ocular motions intact. Lids and lashes normal. Conjunctiva and sclera are non-icteric and not injected. Cornea within normal limits. Periorbital areas with no swelling, redness, or edema. ENT: Nares patent. No nasal discharge, no septal abnormalities noted. Tympanic membranes are normal and external auditory canals are clear. Oropharynx with no redness, swelling, or masses, exudates, or evidence of obstruction, uvula midline. Mucous membranes moist. Neck: Trachea midline, no thyromegaly or masses palpated, and no cervical lymphadenopathy. Supple, full range of motion without nuchal rigidity, or vertebral point tenderness. No Meningismus. Chest/axilla: Normal chest wall appearance and motion. Nontender with no deformity. No lesions are appreciated. Cardiovascular: Regular rate and rhythm with a normal S1 and S2. No gallops, murmurs, or rubs. Normal PMI, no JVD. No pulse deficits. Respiratory: Lungs have equal breath sounds bilaterally, clear to auscultation and percussion. No rales, rhonchi or wheezes noted. No increased work of breathing, no retractions or nasal flaring. Abdomen/GI: Soft, non-tender, with normal bowel sounds. No distension or tympany. No guarding or rebound. No evidence of tenderness throughout. Back: No spinal tenderness. No costovertebral tenderness. Full range of motion. Skin: Warm, dry with normal turgor. Normal color with no rashes, no lesions, and no evidence of cellulitis. MS/ Extremity: Pulses equal, no cyanosis. Neurovascular intact. Full, normal range of motion. Vital Signs: 00:06 BP 152 / 84; Pulse 98; Resp 20; Pulse Ox 96% on R/A; ao 23:05 BP 175 / 87; Pulse 101; Resp 20; Temp 99.9(O); Pulse Ox 98% on R/A; Weight 65.77 kg fc (R); Height 5 ft. 4 in. (162.56 cm); Pain 4/10; 23:05 Body Mass Index 24.89 (65.77 kg, 162.56 cm) fc MDM: 23:12 Patient medically screened. nv 23:53 Data reviewed: vital signs, nurses notes, lab test result(s), radiologic studies, I nh have discussed the patient's presentation/case with the attending Emergency Department Physician; and as a result, I will discharge patient. Counseling: I had a detailed discussion with the patient and/or guardian regarding: the historical points, exam findings, and any diagnostic results supporting the discharge/admit diagnosis, lab results, radiology results, the need for outpatient follow up, to return to the emergency department if symptoms worsen or persist or if there are any questions or concerns that arise at home. 05/16 23:21 Order name: Flu; Complete Time: 23:54 nv 05/16 23:21 Order name: Chest Pa And Lat (2 Views) XRAY nv Administered Medications: No medications were administered Disposition: 05/16/19 23:55 Discharged to Home. Impression: Acute upper respiratory infection, unspecified. - Condition is Stable. - Discharge Instructions: Upper Respiratory Infection, Adult. - Prescriptions for Zithromax Z- Dio 250 mg Oral Tablet - take 1 tablet by ORAL route as directed for 5 days Day 1 - take two (2) tablets one time. Day 2, 3, 4 , 5 take one (1) tablet once daily.; 6 tablet. Medrol (Dio) 4 mg Oral Tablets, Dose Pack - take 1 tablet by ORAL route as directed - follow package instructions; 1 packet. - Medication Reconciliation Form, Thank You Letter, Antibiotic Education, Prescription Opioid Use, Work release form form. - Follow up: Private Physician; When: 2 - 3 days; Reason: Recheck today's complaints. - Problem is new. - Symptoms are unchanged. Addendum: 05/27/2019 06:10 Co-signature as Attending Physician, Marcellus Pizano MD. g s Signatures: Dispatcher [employer] EDWA Lucy Moreno, SWETA HVAC R INSTRUCTOR nv Nan Núñez, RN RN Brice Chatman RN RN Marcellus Valdez MD MD Corrections: (The following items were deleted from the chart) 05/17 00:12 05/16 23:55 05/16/2019 23:55 Discharged to Home. Impression: Acute upper respiratory ao infection, unspecified. Condition is Stable. Forms are Medication Reconciliation Form, Thank You Letter, Antibiotic Education, Prescription Opioid Use. Follow up: Private Physician; When: 2 - 3 days; Reason: Recheck today's complaints. Problem is new. Symptoms are unchanged. nv
[2019-05-17 06:57] VITALS: BP 175/87; TEMP 99.9; O2SAT 98
--- NOTE | 2019-05-17 12:40 | RAD REPORT ---
EXAM DESCRIPTION: RAD - Chest Pa And Lat (2 Views) - 05/16/2019 11:39 pm CLINICAL HISTORY: COUGH Chest pain. COMPARISON: Chest Single View dated 09/02/2018 FINDINGS: Reticular opacities are present in both lower lobes anteriorly suggesting viral pneumoniti s or chronic bronchitis. No focal consolidation typical of pneumonia. The heart is normal in size. No displaced fractures.
== END 2019-05-17 00:12 | disposition home or self-care (01) ==
LOC: ER 23:03
DX: J06.9 Acute upper respiratory infection, unspecified (principal); R05 Cough; I10 Essential (primary) hypertension; E78.5 Hyperlipidemia, unspecified; F41.8 Other specified anxiety disorders; F17.210 Nicotine dependence, cigarettes, uncomplicated
CPT/HCPCS: 71046; 87804; 99283

== ENCOUNTER 2019-07-21 11:28 | Emergency (ER) | payer OTHER ==
[2019-07-21] MEDS ORDERED: NA CHLORIDE 0.9% 500 ML ONE (11:57)
[2019-07-21] MEDS ORDERED: KETOROLAC 30 MG/ML INJ ONE (11:57)
[2019-07-21] MEDS ORDERED: ONDANSETRON 4 MG/2 ML VIAL ONE (11:57)
[2019-07-21] MEDS ORDERED: FAMOTIDINE 20 MG/2 ML VIAL IV ONE (11:58)
[2019-07-21 12:38] LABS: Potassium 3.7 mmol/L (3.5-5.1)
[2019-07-21 12:42] LABS: Absolute Lymphocytes (CBC) 1.7 K/uL (0.7-4.9); Basophils % 0.8 % (0-1.3); Hematocrit 41.9 % (36.0-45.0); Lymphocytes % 28.2 % (15.3-44.8); MPV 8.4 fL (7.6-11.3)
--- NOTE | 2019-07-21 12:53 | RAD REPORT ---
EXAM DESCRIPTION: RAD - Chest Single View - 07/21/2019 12:47 pm CLINICAL HISTORY: Congestion;Cough;COPD Chest pain. COMPARISON: Chest Pa And Lat (2 Views) dated 05/16/2019; Chest Single View dated 09/02/2018 FINDINGS: Portable technique limits examination quality. The lungs are grossly clear. The heart is normal in size. No displaced fractures. IMPRESSION: No acute intrathoracic process suspected.
--- NOTE | 2019-07-21 13:50 | EDPHYS ---
Physician Documentation [facility] Name: Scarlett Felton Age: 54 yrs Sex: Female : 1965 Arrival Date: 07/21/2019 Time: 11:31 Bed 15 Private MD: Suresh Saxena V ED Physician Sidney London HPI: 07/21 11:53 This 54 yrs old Female presents to ER via Ambulatory with complaints of kdr Fever, Nausea, Diarrhea. 11:53 The patient reports fever, not measured (subjective). Onset: The symptoms/episode kdr began/occurred gradually, 1 week(s) ago. Modifying factors: The patient has generally felt poorly for the past few days. She has had fever and general malaise with diarrhea (x2 today). She has had mild nausea but no other focal s/s. Associated signs and symptoms: Pertinent positives: abdominal pain, chills, cough, that is dry, diarrhea, myalgias, nausea. Severity of symptoms: At their worst the symptoms were moderate in the emergency department the symptoms have improved mildly. The patient has not experienced similar symptoms in the past. The patient has not recently seen a physician. 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 tw2 Historical: - Allergies: 11:39 No Known Allergies; tw2 - Home Meds: 11:39 atorvastatin 20 mg Oral tab 1 tab once daily [Active]; bupropion HCl 150 mg Oral TbER 1 tw2 tab once daily [Active]; Celexa Oral [Active]; citalopram 40 mg tab 1 tab once daily [Active]; dicyclomine 10 mg Oral cap 1 cap daily [Active]; gabapentin 600 mg Oral tab 1 tab 3 times per day [Active]; lisinopril 20 mg Oral tab 1 tab once daily [Active]; multivitamin Oral tab daily [Active]; Xanax 1 mg Oral tab 1 tab daily [Active]; - PMHx: 11:39 Anxiety; Chronic pain; Depression; Hernia; Hyperlipidemia; Hypertension; tw2 - PSHx: 11:39 Cholecystectomy; Uterine Ablation; Hernia repair; rotator cuff on right; tw2 - Immunization history:: Adult Immunizations up to date. - Social history:: Smoking status: Patient uses tobacco products, smokes one-half pack cigarettes per day. - Ebola Screening: : Patient denies travel to an Ebola-affected area in the 21 days before illness onset. ROS: 11:53 Constitutional: Negative for objective fever and weight loss - she has had subjective kdr fever, chills Eyes: Negative for injury, pain, redness, and discharge, Neck: Negative for injury, pain, and swelling, Cardiovascular: Negative for chest pain, palpitations, and edema, Back: Negative for injury and pain, : Negative for injury, bleeding, discharge, and swelling, MS/Extremity: Negative for injury and deformity, Skin: Negative for injury, rash, and discoloration, Neuro: Negative for headache, weakness, numbness, tingling, and seizure activity. Psych: Negative for depression, anxiety, suicide ideation, homicidal ideation, and hallucinations, Allergy/Immunology: Negative for hives, rash, and allergies, Endocrine: Negative for neck swelling, polydipsia, polyuria, polyphagia, and marked weight changes, Hematologic/Lymphatic: Negative for swollen nodes, abnormal bleeding, and unusual bruising. 11:53 Respiratory: Positive for cough, with no reported sputum, Negative for dyspnea on exertion, hemoptysis, orthopnea, pleurisy, shortness of breath, sputum production, wheezing. 11:53 Abdomen/GI: Positive for nausea, diarrhea, Negative for vomiting, abdominal cramps, abdominal distension, anorexia, dysphagia, hematemesis, black/tarry stool, rectal pain, rectal bleeding. Exam: 11:53 Constitutional: This is a well developed, well nourished patient who is awake, alert, kdr and in no acute distress. Head/Face: Normocephalic, atraumatic. Eyes: Pupils equal round and reactive to light, extra-ocular motions intact. Lids and lashes normal. Conjunctiva and sclera are non-icteric and not injected. Cornea within normal limits. Periorbital areas with no swelling, redness, or edema. Neck: Trachea midline, no thyromegaly or masses palpated, and no cervical lymphadenopathy. Supple, full range of motion without nuchal rigidity, or vertebral point tenderness. No Meningismus. Chest/axilla: Normal chest wall appearance and motion. Nontender with no deformity. No lesions are appreciated. Cardiovascular: Regular rate and rhythm with a normal S1 and S2. No gallops, murmurs, or rubs. Normal PMI, no JVD. No pulse deficits. Respiratory: Lungs have equal breath sounds bilaterally, clear to auscultation and percussion. No rales, rhonchi or wheezes noted. No increased work of breathing, no retractions or nasal flaring. Abdomen/GI: Soft, non-tender, with normal bowel sounds. No distension or tympany. No guarding or rebound. No evidence of tenderness throughout. Back: No spinal tenderness. No costovertebral tenderness. Full range of motion. Skin: Warm, dry with normal turgor. Normal color with no rashes, no lesions, and no evidence of cellulitis. MS/ Extremity: Pulses equal, no cyanosis. Neurovascular intact. Full, normal range of motion. Neuro: Awake and alert, GCS 15, oriented to person, place, time, and situation. Cranial nerves II-XII grossly intact. Motor strength 5/5 in all extremities. Sensory grossly intact. Cerebellar exam normal. Normal gait. Psych: Awake, alert, with orientation to person, place and time. Behavior, mood, and affect are within normal limits. Vital Signs: 11:37 BP 116 / 70; Pulse 86; Resp 17; Temp 98.0(O); Pulse Ox 100% on R/A; Weight 74.84 kg tw2 (R); Height 5 ft. 4 in. (162.56 cm); Pain 5/10; 12:44 BP 119 / 86; Pulse 74; Resp 16; Pulse Ox 100% ; Pain 5/10; rb1 13:30 BP 119 / 62; Pulse 67; Resp 17; Temp 98.3(O); Pulse Ox 98% on R/A; Pain 5/10; rb1 11:37 Body Mass Index 28.32 (74.84 kg, 162.56 cm) tw2 MDM: 13:49 Patient medically screened. kdr 13:57 Data reviewed: vital signs, nurses notes, lab test result(s), radiologic studies. kdr Counseling: I had a detailed discussion with the patient and/or guardian regarding: the historical points, exam findings, and any diagnostic results supporting the discharge/admit diagnosis, lab results, radiology results, the need for outpatient follow up. 13:57 ED course: The patient was feeling better with the interventions given. She was happy kdr with the care provided and the plan for discharge and follow-up. 07/21 11:53 Order name: Flu; Complete Time: 13:48 kdr 07/21 11:53 Order name: CBC with Diff; Complete Time: 13:48 kdr 07/21 11:53 Order name: Chem 7; Complete Time: 13:48 kdr 07/21 11:53 Order name: CXR XRAY; Complete Time: 13:48 kdr Administered Medications: 12:08 Drug: Zofran 4 mg Route: IVP; Site: right antecubital; rb1 12:25 Follow up: Response: No adverse reaction rb1 12:10 Drug: NS 0.9% 500 ml Volume: 500 ml; Route: IV; Rate: 1 bolus; Site: right antecubital; rb1 12:42 Follow up: IV Status: Completed infusion rb1 12:10 Drug: TORadol - Ketorolac 15 mg Route: IVP; Site: right antecubital; rb1 12:25 Follow up: Response: No adverse reaction rb1 12:10 Drug: Pepcid 20 mg Route: IVP; Site: right antecubital; rb1 12:25 Follow up: Response: No adverse reaction rb1 Disposition: 07/21/19 13:49 Discharged to Home. Impression: Diarrhea, unspecified, Weakness, Nausea, Myalgia. - Condition is Stable. - Discharge Instructions: Musculoskeletal Pain, Nausea and Vomiting, Adult, Diarrhea, Adult, [id number], Weakness, [id number], Dehydration, Adult, [id number]. - Prescriptions for Zofran 4 mg Oral Tablet - take 1 tablet by ORAL route every 4-6 hours As needed; 20 tablet. Tramadol 50 mg Oral Tablet - take 1 tablet by ORAL route every 8 hours as needed; 12 tablet. - Medication Reconciliation Form, Thank You Letter, Work release form form. - Follow up: Suresh Saxena MD; When: 2 - 3 days; Reason: If symptoms return, Further diagnostic work-up, Recheck today's complaints, Continuance of care, Re-evaluation by your physician. - Problem is new. - Symptoms have improved. Signatures: Dispatcher [employer] EDMS Sidney London MD MD kdr Nisa Cabrales, RN RN rb1 Chantelle Cheema RN RN tw2 Corrections: (The following items were deleted from the chart) 14:07 13:49 07/21/2019 13:49 Discharged to Home. Impression: Diarrhea, unspecified; Weakness; rb1 Nausea; Myalgia. Condition is Stable. Forms are Medication Reconciliation Form, Thank You Letter, Antibiotic Education, Prescription Opioid Use. Follow up: Suresh Saxena; When: 2 - 3 days; Reason: If symptoms return, Further diagnostic work-up, Recheck today's complaints, Continuance of care, Re-evaluation by your physician. Problem is new. Symptoms have improved. kdr
--- NOTE | 2019-07-21 13:50 | ER ---
Nurse's Notes [facility] Name: Scarlett Felton Age: 54 yrs Sex: Female : 1965 Arrival Date: 07/21/2019 Time: 11:31 Bed 15 Private MD: Suresh Saxena V Diagnosis: Diarrhea, unspecified;Weakness;Nausea;Myalgia Presentation: 07/21 11:36 Presenting complaint: Patient states: since Saturday morning i have had fever off and tw2 on and nausea and diarrhea and some stomach cramping when the diarrhea hits. Presenting complaint: Patient states: i also have some congestion too. Transition of care: patient was not received from another setting of care. Onset of symptoms was July 21, 2019. Risk Assessment: Do you want to hurt yourself or someone else? Patient reports no desire to harm self or others. Initial Sepsis Screen: Does the patient meet any 2 criteria? No. Patient's initial sepsis screen is negative. Does the patient have a suspected source of infection? No. Patient's initial sepsis screen is negative. Care prior to arrival: None. 11:36 Method Of Arrival: Ambulatory tw2 11:36 Acuity: ITALIA 3 tw2 Triage Assessment: 11:37 General: Appears in no apparent distress. Behavior is calm, cooperative, appropriate tw2 for age. Pain: Complains of pain in abdomen. GI: Reports diarrhea, nausea. [address] PATROL: 11:37 LMP N/A - Post-menopause tw2 Historical: - Allergies: 11:39 No Known Allergies; tw2 - Home Meds: 11:39 atorvastatin 20 mg Oral tab 1 tab once daily [Active]; bupropion HCl 150 mg Oral TbER 1 tw2 tab once daily [Active]; Celexa Oral [Active]; citalopram 40 mg tab 1 tab once daily [Active]; dicyclomine 10 mg Oral cap 1 cap daily [Active]; gabapentin 600 mg Oral tab 1 tab 3 times per day [Active]; lisinopril 20 mg Oral tab 1 tab once daily [Active]; multivitamin Oral tab daily [Active]; Xanax 1 mg Oral tab 1 tab daily [Active]; - PMHx: 11:39 Anxiety; Chronic pain; Depression; Hernia; Hyperlipidemia; Hypertension; tw2 - PSHx: 11:39 Cholecystectomy; Uterine Ablation; Hernia repair; rotator cuff on right; tw2 - Immunization history:: Adult Immunizations up to date. - Social history:: Smoking status: Patient uses tobacco products, smokes one-half pack cigarettes per day. - Ebola Screening: : Patient denies travel to an Ebola-affected area in the 21 days before illness onset. Screenin:52 Abuse screen: Denies threats or abuse. Nutritional screening: No deficits noted. tw2 Tuberculosis screening: No symptoms or risk factors identified. Fall Risk None identified. Assessment: 11:44 General: Appears in no apparent distress. comfortable, Behavior is calm, cooperative, rb1 Reports fever for feeling ill for. Neuro: Level of Consciousness is awake, alert, obeys commands, Oriented to person, place, time, situation. Cardiovascular: Capillary refill < 3 seconds is brisk in bilateral fingers. Respiratory: Airway is patent Respiratory effort is even, unlabored, Respiratory pattern is regular, symmetrical. GI: Abdomen is non-distended, Reports diarrhea, nausea. : No signs and/or symptoms were reported regarding the genitourinary system. Derm: Skin is pink, warm \T\ dry. 11:44 Pain: Complains of pain in abdomen Pain currently is 5 out of 10 on a pain scale. Pain rb1 began 1 day ago. 12:42 Reassessment: Patient appears in no apparent distress at this time. No changes from rb1 previously documented assessment. 13:30 Reassessment: Patient appears in no apparent distress at this time. Patient and/or rb1 family updated on plan of care and expected duration. Pain level reassessed. Patient is alert, oriented x 3, equal unlabored respirations, skin warm/dry/pink. Vital Signs: 11:37 BP 116 / 70; Pulse 86; Resp 17; Temp 98.0(O); Pulse Ox 100% on R/A; Weight 74.84 kg tw2 (R); Height 5 ft. 4 in. (162.56 cm); Pain 5/10; 12:44 BP 119 / 86; Pulse 74; Resp 16; Pulse Ox 100% ; Pain 5/10; rb1 13:30 BP 119 / 62; Pulse 67; Resp 17; Temp 98.3(O); Pulse Ox 98% on R/A; Pain 5/10; rb1 11:37 Body Mass Index 28.32 (74.84 kg, 162.56 cm) tw2 ED Course: 11:31 Patient arrived in ED. ag5 11:32 Suresh Saxena MD is Private Physician. ag5 11:37 Triage completed. tw2 11:37 Arm band placed on. tw2 11:39 Sidney London MD is Attending Physician. kdr 11:39 Bed in low position. Call light in reach. tw2 11:54 Nisa Cabrales, RN is Primary Nurse. rb1 12:08 Inserted saline lock: 22 gauge in right antecubital area, using aseptic technique. rb1 Blood collected. 12:43 CXR XRAY In Process Unspecified. EDMS 13:48 Suresh Saxena MD is Referral Physician. kdr 14:06 No provider procedures requiring assistance completed. IV discontinued, intact, rb1 bleeding controlled, No redness/swelling at site. Pressure dressing applied. Administered Medications: 12:08 Drug: Zofran 4 mg Route: IVP; Site: right antecubital; rb1 12:25 Follow up: Response: No adverse reaction rb1 12:10 Drug: NS 0.9% 500 ml Volume: 500 ml; Route: IV; Rate: 1 bolus; Site: right antecubital; rb1 12:42 Follow up: IV Status: Completed infusion rb1 12:10 Drug: TORadol - Ketorolac 15 mg Route: IVP; Site: right antecubital; rb1 12:25 Follow up: Response: No adverse reaction rb1 12:10 Drug: Pepcid 20 mg Route: IVP; Site: right antecubital; rb1 12:25 Follow up: Response: No adverse reaction rb1 Outcome: 13:49 Discharge ordered by . kdr 14:06 Discharged to home ambulatory. rb1 14:06 Condition: stable 14:06 Discharge instructions given to patient, Instructed on discharge instructions, follow up and referral plans. medication usage, Demonstrated understanding of instructions, follow-up care, medications, Prescriptions given X 2. 14:07 Patient left the ED. rb1 Signatures: Dispatcher [employer] EDKS Sidney London MD MD kdr Nisa Cabrales, RN RN rb1 Chantelle Cheema RN RN tw2 Swati Petty ag5 Corrections: (The following items were deleted from the chart) 12:49 11:44 BP 119 / 86; Pulse 74bpm; Resp 16bpm; Pulse Ox 100%; Pain 5/10; rb1 rb1 12:50 11:44 General: Appears in no apparent distress. comfortable, Behavior is calm, rb1 cooperative, Reports fever for feeling ill for rb1
[2019-07-21 15:01] VITALS: BP 119/62; TEMP 98.3; O2SAT 98
== END 2019-07-21 14:07 | disposition home or self-care (01) ==
LOC: ER 11:28
DX: R19.7 Diarrhea, unspecified (principal); R53.1 Weakness; M79.10 Myalgia, unspecified site; I10 Essential (primary) hypertension; E78.5 Hyperlipidemia, unspecified; F32.9 Major depressive disorder, single episode, unspecified; F41.9 Anxiety disorder, unspecified; F17.210 Nicotine dependence, cigarettes, uncomplicated
CPT/HCPCS: 96361; 85025; 80048; 36415; 87804 ×2; 71045; 96375; 96374; 99284; J7040; J2405

== ENCOUNTER 2020-01-12 13:30 | Emergency (ER) | payer OTHER ==
[2020-01-12 15:50] LABS: Absolute Lymphocytes (CBC) 2.1 K/uL (0.7-4.9); Basophils % 0.7 % (0-1.3); Hematocrit 40.6 % (36.0-45.0); Lymphocytes % 24.5 % (15.3-44.8); MPV 7.9 fL (7.6-11.3); RBC Red Blood Cell Count 4.26 M/uL (3.86-4.86)
[2020-01-12] MEDS ORDERED: METOCLOPRAMIDE 10 MG/2mL INJ ONE (16:03)
[2020-01-12] MEDS ORDERED: DIPHENHYDRAMINE 50 MG/ML VIAL ONE (16:03)
[2020-01-12] MEDS ORDERED: NA CHLORIDE 0.9% 500 ML ONE (16:04)
[2020-01-12 16:33] LABS: ALT/SGPT 25 U/L (12-78); AST/SGOT 23 U/L (15-37); Albumin 3.7 g/dL (3.4-5.0); Alkaline Phosphatase 107 U/L (45-117); BUN Blood Urea Nitrogen 8 mg/dL (7-18); Bicarbonate 26 mmol/L (21-32); Glucose Level 89 mg/dL (74-106); NT PRO-BNP 113 pg/mL (<125); Potassium 3.8 mmol/L (3.5-5.1); Protein, Total 7.5 g/dL (6.4-8.2); Sodium Level 141 mmol/L (136-145)
[2020-01-12 16:37] LABS: Bilirubin Total < 0.1 mg/dL (0.2-1.0)
--- NOTE | 2020-01-12 16:57 | EDPHYS ---
Physician Documentation [facility] Name: Scarlett Felton Age: 54 yrs Sex: Female : 1965 Arrival Date: 01/12/2020 Time: 13:32 Bed 6 Private MD: Suresh Saxena V ED Physician Eduardo Moses HPI: 01/11 16:51 This 54 yrs old Female presents to ER via Ambulatory with complaints of ps1 Headache, Fever. 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 Has had cough and subjective fever and fatigue. Tried ps1 OTC medications no improvement. Concerned about COVID. . 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 - Social history:: Smoking status: Patient reports the use of cigarette tobacco products, smokes one-half pack cigarettes per day, Patient uses CBD, Patient/guardian denies using street drugs. ROS: 16:51 Eyes: Negative for injury, pain, redness, and discharge, MS/Extremity: Negative for ps1 injury and deformity, Skin: Negative for injury, rash, and discoloration, Neuro: Negative for headache, weakness, numbness, tingling, and seizure. 16:51 Constitutional: Positive for fatigue, fever. 16:51 Respiratory: Positive for cough. Exam: 16:51 Head/Face: Normocephalic, atraumatic. Eyes: Pupils equal round and reactive to light, ps1 extra-ocular motions intact. Lids and lashes normal. Conjunctiva and sclera are non-icteric and not injected. 16:51 Constitutional: The patient appears in no acute distress, alert. 16:51 Head/face: 16:51 Chest/axilla: Inspection: normal. 16:51 Cardiovascular: Rate: normal, Rhythm: regular. 16:51 Respiratory: the patient does not display signs of respiratory distress, Respirations: normal. 16:51 Abdomen/GI: Inspection: abdomen appears normal. 16:51 Musculoskeletal/extremity: Extremities: all appear grossly normal, with no appreciated pain with palpation. 16:51 Skin: Appearance: Color: normal in color. Vital Signs: 13:49 BP 202 / 90; Pulse 83; Resp 18; Temp 98.4(O); Pulse Ox 100% ; Pain 8/10; ll1 15:00 BP 169 / 77; Pulse 74; Resp 16 S; Pulse Ox 98% on R/A; jl7 15:30 BP 171 / 83; Pulse 72; Resp 16; Pulse Ox 100% ; Pain 8/10; jl7 16:00 BP 160 / 85; Pulse 73; Resp 14; Pulse Ox 98% ; jl7 16:30 BP 156 / 79; Pulse 73; Resp 16; Pulse Ox 99% ; jl7 MDM: 15:52 Patient medically screened. ps1 16:58 Data reviewed: vital signs, nurses notes, lab test result(s), and as a result, I will ps1 discharge patient. Counseling: I had a detailed discussion with the patient and/or guardian regarding: the historical points, exam findings, and any diagnostic results supporting the discharge/admit diagnosis, radiology results, the need for outpatient follow up, to return to the emergency department if symptoms worsen or persist or if there are any questions or concerns that arise at home. 01/11 15:17 Order name: COVID-19 ps1 01/11 15:17 Order name: CBC with Diff; Complete Time: 15:52 ps1 01/11 15:17 Order name: CMP; Complete Time: 16:42 ps1 01/11 15:17 Order name: BNP; Complete Time: 16:42 ps1 01/11 17:12 Order name: Urine Dipstick--Ancillary (enter results) bd 01/11 15:17 Order name: Urine Dipstick-Ancillary (obtain specimen); Complete Time: 17:18 ps1 Administered Medications: 16:01 Drug: NS 0.9% 500 ml Route: IV; Rate: bolus; Site: right forearm; jl7 17:18 Follow up: IV Status: Completed infusion ss 16:02 Drug: Reglan 10 mg Route: IVP; Site: right forearm; jl7 16:51 Follow up: Response: No adverse reaction; Pain is decreased jl7 16:06 Drug: Benadryl 50 mg Route: IVP; Site: right forearm; jl7 16:51 Follow up: Response: No adverse reaction; Pain is decreased jl7 Disposition: 01/12/20 16:57 Discharged to Home. Impression: Headache, Viral illness . - Condition is Stable. - Discharge Instructions: General Headache Without Cause, COVID-19. - Medication Reconciliation Form, Thank You Letter, Antibiotic Education, Prescription Opioid Use, Work release form form. - Follow up: Suresh Saxena MD; When: As needed; Reason: Recheck today's complaints, Continuance of care, Re-evaluation by your physician. Follow up: Emergency Department; When: As needed; Reason: Fever > 102 F, Trouble breathing, Worsening of condition. - Problem is new. - Symptoms have improved. Signatures: Dispatcher [employer] EDMS Claire Mccullough RN RN ss Fazal Kamara RN RN jl7 Eduardo Moses MD MD ps1 Vic Rios RN RN ll1 Corrections: (The following items were deleted from the chart) 17:18 16:57 01/12/2020 16:57 Discharged to Home. Impression: Headache; Viral illness . ss Condition is Stable. Forms are Medication Reconciliation Form, Thank You Letter, Antibiotic Education, Prescription Opioid Use. Follow up: Suresh Saxena; When: As needed; Reason: Recheck today's complaints, Continuance of care, Re-evaluation by your physician. Follow up: Emergency Department; When: As needed; Reason: Fever > 102 F, Trouble breathing, Worsening of condition. Problem is new. Symptoms have improved. ps1
--- NOTE | 2020-01-12 16:57 | ER ---
Nurse's Notes [facility] Name: Scarlett Felton Age: 54 yrs Sex: Female : 1965 Arrival Date: 01/12/2020 Time: 13:32 Bed 6 Private MD: Suresh Saxena V Diagnosis: Headache;Viral illness Presentation: 01/11 13:49 Chief complaint: Patient states: BLAKELY, not feeling well, fever 101, BLAKELY since last night. ll1 Coronavirus screen: Surgical mask placed on patient. Patient moved to private room, placed in contact and droplet isolation with eye protection until further assessment. Patient reports a cough. Patient denies shortness of breath or difficulty breathing. Patient reports a measured and/or subjective temperature greater than 100.4F. Patient denies travel on a cruise ship or to a country the [facility] currently lists as an affected area. Patient denies contact with known and/or suspected case of COVID-19. Ebola Screen: Patient denies travel to an Ebola-affected area in the 21 days before illness onset. Initial Sepsis Screen: Does the patient meet any 2 criteria? No. Patient's initial sepsis screen is negative. Does the patient have a suspected source of infection? No. Patient's initial sepsis screen is negative. Risk Assessment: Do you want to hurt yourself or someone else? Patient reports no desire to harm self or others. Onset of symptoms was January 11, 2020. 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 - Social history:: Smoking status: Patient reports the use of cigarette tobacco products, smokes one-half pack cigarettes per day, Patient uses CBD, Patient/guardian denies using street drugs. Screenin:00 Abuse screen: Denies threats or abuse. Denies injuries from another. Nutritional jl7 screening: No deficits noted. Tuberculosis screening: No symptoms or risk factors identified. Assessment: 15:00 General: Appears in no apparent distress. uncomfortable, Behavior is calm, cooperative, jl7 appropriate for age. Pain: Complains of pain in BLAKELY Pain currently is 8 out of 10 on a pain scale. Neuro: Level of Consciousness is awake, alert, obeys commands, Oriented to person, place, time, situation, Moves all extremities. Full function Gait is steady, Speech is normal, Facial symmetry appears normal. Cardiovascular: Patient's skin is warm and dry. Respiratory: Airway is patent Respiratory effort is even, unlabored, Respiratory pattern is regular, symmetrical. Derm: Skin is pink, warm \T\ dry. 16:00 Reassessment: Patient appears in no apparent distress at this time. No changes from jl7 previously documented assessment. Patient and/or family updated on plan of care and expected duration. Pain level reassessed. Patient is alert, oriented x 3, equal unlabored respirations, skin warm/dry/pink. 16:18 Reassessment: [facility] #[id number]. hb Vital Signs: 13:49 BP 202 / 90; Pulse 83; Resp 18; Temp 98.4(O); Pulse Ox 100% ; Pain 8/10; ll1 15:00 BP 169 / 77; Pulse 74; Resp 16 S; Pulse Ox 98% on R/A; jl7 15:30 BP 171 / 83; Pulse 72; Resp 16; Pulse Ox 100% ; Pain 8/10; jl7 16:00 BP 160 / 85; Pulse 73; Resp 14; Pulse Ox 98% ; jl7 16:30 BP 156 / 79; Pulse 73; Resp 16; Pulse Ox 99% ; jl7 ED Course: 13:32 Patient arrived in ED. ag5 13:33 Suresh Saxena MD is Private Physician. ag5 13:50 Triage completed. ll1 13:52 Arm band placed on Patient placed in an exam room, on a stretcher. ll1 14:11 Eduardo Moses MD is Attending Physician. ps1 15:00 Patient has correct armband on for positive identification. Placed in gown. Bed in low jl7 position. Call light in reach. Side rails up X 1. shelter monitor on. Pulse ox on. NIBP on. Warm blanket given. 15:00 Initial lab(s) drawn, by me, sent to lab. Inserted saline lock: 20 gauge in right jl7 forearm, using aseptic technique. Blood collected. 15:14 Fazal Kamara, RN is Primary Nurse. jl7 16:56 Suresh Saxena MD is Referral Physician. ps1 17:18 No provider procedures requiring assistance completed. IV discontinued, intact, ss bleeding controlled, No redness/swelling at site. Pressure dressing applied. Administered Medications: 16:01 Drug: NS 0.9% 500 ml Route: IV; Rate: bolus; Site: right forearm; jl7 17:18 Follow up: IV Status: Completed infusion ss 16:02 Drug: Reglan 10 mg Route: IVP; Site: right forearm; jl7 16:51 Follow up: Response: No adverse reaction; Pain is decreased jl7 16:06 Drug: Benadryl 50 mg Route: IVP; Site: right forearm; jl7 16:51 Follow up: Response: No adverse reaction; Pain is decreased jl7 Outcome: 16:57 Discharge ordered by MD. ps1 17:18 Discharged to home ambulatory. ss 17:18 Condition: good 17:18 Discharge instructions given to patient, Instructed on discharge instructions, follow up and referral plans. Demonstrated understanding of instructions, follow-up care. 17:18 Patient left the ED. ss Addendum: 01/15/2020 15:50 Addendum: Other Pt notified of COVID-19 not detected result, pt verbalized a a5 understanding. Signatures: Debra Lin RN RN aa5 Claire Mccullough RN RN ss Jossie Costa RN RN Fazal Kamara RN RN jl7 Eduardo Moses MD MD [facility] Swati Petty [facility] Vic Rios RN RN ll1 Corrections: (The following items were deleted from the chart) 01/11 13:52 13:49 Coronavirus screen: Proceed with normal triage. Patient reports a cough. Patient ll1 denies shortness of breath or difficulty breathing. Patient reports a measured and/or subjective temperature greater than 100.4F. Patient denies travel on a cruise ship or to a country the [facility] currently lists as an affected area. Patient denies contact with known and/or suspected case of COVID-19. ll1
[2020-01-12 17:21] LABS: Urine Blood TRACE (NEG); Urine Glucose NEGATIVE (NEG); Urine Protein NEGATIVE (NEG); Urine pH 6.5 (5.0-7.0)
[2020-01-12 17:31] VITALS: TEMP 98.4
[2020-01-12 17:37] VITALS: BP 156/79; O2SAT 99
== END 2020-01-12 17:18 | disposition home or self-care (01) ==
LOC: ER 13:30
DX: B34.9 Viral infection, unspecified (principal); Z20.828 Contact with and (suspected) exposure to other viral communicable diseases; I10 Essential (primary) hypertension; F17.210 Nicotine dependence, cigarettes, uncomplicated
CPT/HCPCS: 96361; 85025; 36415; 81003; 80053; 83880; 96375; 96374; 99284; U0001; J1200; J2765; J7040

== ENCOUNTER 2020-03-14 20:19 | Emergency (ER) | payer OTHER ==
[2020-03-14] MEDS ORDERED: HYDROCODONE/APAP 7.5/325 MG TAB ONE (21:18)
[2020-03-14] MEDS ORDERED: TETANUS & DIPHTHERIA TOX,ADULT 0.5 ML VIAL ONE (21:18)
--- NOTE | 2020-03-14 21:25 | ER ---
Nurse's Notes [facility] Name: Scarlett Felton Age: 54 yrs Sex: Female : 1965 Arrival Date: 03/14/2020 Time: 20:23 Bed 14 Private MD: Suresh Saxena V Diagnosis: Dog bites left thumb and right wrist Presentation: 03/14 20:31 Chief complaint: Patient states: NEIGHBOR'S DOG ATTACK MY DOG AND BIT ME ON THE LEFT rv HAND. Coronavirus screen: Proceed with normal triage. Ebola Screen: No symptoms or risks identified at this time. Initial Sepsis Screen: Does the patient meet any 2 criteria? No. Patient's initial sepsis screen is negative. Does the patient have a suspected source of infection? No. Patient's initial sepsis screen is negative. Risk Assessment: Do you want to hurt yourself or someone else? Patient reports no desire to harm self or others. Onset of symptoms was March 14, 2020 at 20:00. 20:31 Method Of Arrival: Ambulatory rv 20:31 Acuity: ITALIA 3 rv Triage Assessment: 20:35 Bite description: bite sustained to palmar aspect of distal phalanx of left thumb is rv full thickness, by a dog, animal information: vaccination(s) is current. General: Appears comfortable, Behavior is calm, cooperative. Pain: Complains of pain in left hand. EENT: No signs and/or symptoms were reported regarding the EENT system. Neuro: Level of Consciousness is awake, alert, obeys commands, Oriented to person, place, time, situation. Cardiovascular: Patient's skin is warm and dry. Respiratory: Airway is patent. Derm: Wound noted left hand. 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 - Social history:: Smoking status: Patient reports the use of cigarette tobacco products, smokes one-half pack cigarettes per day. Screenin:47 Abuse screen: Denies threats or abuse. Denies injuries from another. Nutritional ca1 screening: No deficits noted. Tuberculosis screening: No symptoms or risk factors identified. Fall Risk None identified. Assessment: 20:46 General: Appears in no apparent distress. comfortable, Behavior is calm, cooperative, ca1 appropriate for age. Pain: Complains of pain in left hand and palmar aspect of distal phalanx of left thumb. Neuro: Level of Consciousness is awake, alert, obeys commands, Oriented to person, place, time, situation. Derm: Skin is healthy with good turgor, Skin is pink, warm \T\ dry. Musculoskeletal: Circulation, motion, and sensation intact. Capillary refill < 3 seconds. 20:52 Reassessment: Reported to the Lap Winding Machine Operator's Office. Spoken with Helene. ca1 21:15 Reassessment: Patient is alert/active/playful, equal unlabored respirations, skin ca1 warm/dry/pink. Critical care time stopped, [place] has stabilized[place] bedside. Vital Signs: 20:31 BP 158 / 78; Pulse 96; Resp 18; Temp 98.6; Pulse Ox 96% on R/A; Weight 74.84 kg; Height rv 5 ft. 4 in. (162.56 cm); Pain 8/10; 21:42 BP 126 / 76; Pulse 80; Resp 14; Pulse Ox 97% on R/A; dh4 20:31 Body Mass Index 28.32 (74.84 kg, 162.56 cm) rv ED Course: 20:23 Patient arrived in ED. es 20:23 Suresh Saxena MD is Private Physician. es 20:34 Triage completed. rv 20:35 Arm band placed on Patient placed in the treatment room, on a stretcher, Patient rv notified of wait time. 20:39 Isabella Lopes, RN is Primary Nurse. ca1 20:40 Patient has correct armband on for positive identification. Bed in low position. Call ca1 light in reach. Side rails up X 1. Pulse ox on. NIBP on. 20:43 Reji Vidales MD is Attending Physician. pkl 20:47 No provider procedures requiring assistance completed. Patient did not have IV access ca1 during this emergency room visit. 21:24 Suresh Saxena MD is Referral Physician. pkl 21:27 Wound care: to dog bite located on palmar aspect of distal phalanx of left thumb was ca1 cleaned with Hibiclens, soaked in Betadine solution, dressed with Neosporin, 4X4s, Patient tolerated well. 21:37 Hand Left 3 View XRAY In Process Unspecified. 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 Exp: ca1 10/23/2021. Lot #: [id number]. } Route: IM; Site: right deltoid; 21:37 Follow up: Response: No adverse reaction ca1 21:27 Drug: KeFLEX 500 mg Route: PO; ca1 21:37 Follow up: Response: No adverse reaction ca1 Outcome: 21:25 Discharge ordered by . jethro 21:43 Discharged to home ambulatory, with friend. ca1 21:43 Condition: stable 21:43 Discharge instructions given to patient, Instructed on discharge instructions, follow up and referral plans. no drinking with medication, no driving heavy equipment, medication usage, Demonstrated understanding of instructions, follow-up care, medications, Prescriptions given X 3. 21:46 Patient left the ED. ca1 Signatures: Dispatcher [employer] EDMS Reji Vidales MD MD pkl Salyer, Edna es Vicente, Ronaldo RN RN Isabella Lopes RN RN ca1 Andrew Alvarez [facility] Corrections: (The following items were deleted from the chart) 20:54 20:51 Reassessment: ca1 ca1
--- NOTE | 2020-03-14 21:26 | EDPHYS ---
Physician Documentation [facility] Name: Scarlett Felton Age: 54 yrs Sex: Female : 1965 Arrival Date: 03/14/2020 Time: 20:23 Bed 14 Private MD: Suresh Saxena V ED Physician Reji Vidales HPI: 03/14 20:53 This 54 yrs old Female presents to ER via Ambulatory with complaints of Dog pkl Bite. 20:53 The patient was bitten on the left thumb and right wrist. Onset: The symptoms/episode pkl began/occurred just prior to arrival. Secondary to the bite the patient reports pain, puncture wounds. 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 - Social history:: Smoking status: Patient reports the use of cigarette tobacco products, smokes one-half pack cigarettes per day. ROS: 20:55 Eyes: Negative for injury, pain, redness, and discharge, ENT: Negative for injury, pkl pain, and discharge, Neck: Negative for injury, pain, and swelling, Cardiovascular: Negative for chest pain, palpitations, and edema, Respiratory: Negative for shortness of breath, cough, wheezing, and pleuritic chest pain, Abdomen/GI: Negative for abdominal pain, nausea, vomiting, diarrhea, and constipation, Back: Negative for injury and pain, : Negative for injury, bleeding, discharge, and swelling, Neuro: Negative for headache, weakness, numbness, tingling, and seizure. 20:55 MS/extremity: Positive for pain, puncture, of the left thumb and right wrist. Exam: 20:55 Head/Face: Normocephalic, atraumatic. Eyes: Pupils equal round and reactive to light, pkl extra-ocular motions intact. Lids and lashes normal. Conjunctiva and sclera are non-icteric and not injected. Cornea within normal limits. Periorbital areas with no swelling, redness, or edema. ENT: Nares patent. No nasal discharge, no septal abnormalities noted. Tympanic membranes are normal and external auditory canals are clear. Oropharynx with no redness, swelling, or masses, exudates, or evidence of obstruction, uvula midline. Mucous membranes moist. Neck: Trachea midline, no thyromegaly or masses palpated, and no cervical lymphadenopathy. Supple, full range of motion without nuchal rigidity, or vertebral point tenderness. No Meningismus. Chest/axilla: Normal chest wall appearance and motion. Nontender with no deformity. No lesions are appreciated. Cardiovascular: Regular rate and rhythm with a normal S1 and S2. No gallops, murmurs, or rubs. Normal PMI, no JVD. No pulse deficits. Respiratory: Lungs have equal breath sounds bilaterally, clear to auscultation and percussion. No rales, rhonchi or wheezes noted. No increased work of breathing, no retractions or nasal flaring. Abdomen/GI: Soft, non-tender, with normal bowel sounds. No distension or tympany. No guarding or rebound. No evidence of tenderness throughout. Back: No spinal tenderness. No costovertebral tenderness. Full range of motion. Neuro: Awake and alert, GCS 15, oriented to person, place, time, and situation. Cranial nerves II-XII grossly intact. Motor strength 5/5 in all extremities. Sensory grossly intact. Cerebellar exam normal. Normal gait. 20:55 Musculoskeletal/extremity: Extremities: grossly normal except: noted in the left thumb: bite, pain, puncture, noted in the right wrist: bite, pain, puncture. Vital Signs: 20:31 BP 158 / 78; Pulse 96; Resp 18; Temp 98.6; Pulse Ox 96% on R/A; Weight 74.84 kg; Height rv 5 ft. 4 in. (162.56 cm); Pain 8/10; 21:42 BP 126 / 76; Pulse 80; Resp 14; Pulse Ox 97% on R/A; dh4 20:31 Body Mass Index 28.32 (74.84 kg, 162.56 cm) rv MDM: 20:44 Patient medically screened. pkl 21:22 Data reviewed: vital signs, nurses notes, radiologic studies, plain films. ED course: pkl Patient feeling better. Discussed X' rays result with patient. Advised to follow up with PCP in 2 to 3 days. Patient understood instructions. 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 Exp: ca1 10/23/2021. Lot #: [id number]. } Route: IM; Site: right deltoid; 21:37 Follow up: Response: No adverse reaction ca1 21:27 Drug: KeFLEX 500 mg Route: PO; ca1 21:37 Follow up: Response: No adverse reaction ca1 Disposition: 03/14/20 21:25 Discharged to Home. Impression: Dog bites left thumb and right wrist. - Condition is Stable. - Prescriptions for Keflex 500 mg Oral Capsule - take 1 capsule by ORAL route every 8 hours for 7 days; 21 capsule. Ultram 50 mg Oral Tablet - take 1 tablet by ORAL route every 8 hours As needed; 15 tablet. - Medication Reconciliation Form, Thank You Letter, Antibiotic Education, Prescription Opioid Use, Work release form form. - Follow up: Suresh Saxena MD; When: 2 - 3 days; Reason: Re-evaluation by your physician. - Problem is new. - Symptoms have improved. Signatures: Dispatcher [employer] EDMS Reji Vidales MD MD pkl Matt Silva RN RN Isabella Lopes RN RN ca1 Corrections: (The following items were deleted from the chart) 21:46 21:25 03/14/2020 21:25 Discharged to Home. Impression: Dog bites left thumb and right ca1 wrist. Condition is Stable. Forms are Medication Reconciliation Form, Thank You Letter, Antibiotic Education, Prescription Opioid Use. Follow up: Suresh Saxena; When: 2 - 3 days; Reason: Re-evaluation by your physician. Problem is new. Symptoms have improved. pkl
[2020-03-14] MEDS ORDERED: CEPHALEXIN 250 MG CAP ONE (21:33)
[2020-03-14 22:14] VITALS: TEMP 98.6
[2020-03-14 22:35] VITALS: BP 126/76; O2SAT 97
--- NOTE | 2020-03-15 08:29 | RAD REPORT ---
EXAM DESCRIPTION: RAD - Hand Left 3 View - 03/14/2020 9:36 pm CLINICAL HISTORY: dog bite left thumb;Pain COMPARISON: None. FINDINGS: No fracture, dislocation or periosteal reaction noted. No foreign body or other soft tissu e abnormality. IMPRESSION: Negative left hand examination.
== END 2020-03-14 21:46 | disposition home or self-care (01) ==
LOC: ER 20:19
DX: S61.032A Puncture wound without foreign body of left thumb without damage to nail, initial encounter (principal); S61.531A Puncture wound without foreign body of right wrist, initial encounter; W54.0XXA Bitten by dog, initial encounter; Y93.9 Activity, unspecified; Y92.9 Unspecified place or not applicable; I10 Essential (primary) hypertension; Z23 Encounter for immunization
CPT/HCPCS: 90471; 90714; 99284

== ENCOUNTER 2020-06-02 12:47 | Emergency (ER) | payer OTHER ==
--- NOTE | 2020-06-02 14:10 | RAD REPORT ---
EXAM DESCRIPTION: CT - C Spine Wo Con - 06/02/2020 1:58 pm CLINICAL HISTORY: Numbness COMPARISON: None. TECHNIQUE: Computed axial tomography of the cervical spine were obtained with sagittal and coronal r econstruction images generated and reviewed. All CT scans are performed using dose optimization technique as appropriate and may include automated exposure control or mA/KV adjustment according to patient size. FINDINGS: A cervical fracture is not seen. No dislocation. Loss of the normal lordosis may be secondary to muscle spasm. Mild spondylosis mid and distal cervical spine. No high-grade central/foraminal stenosis is seen IMPRESSION: A cervical fracture is not seen. Mild spondylosis If the patient continues have symptoms to suggest spinal cord/spinal canal/neural foramina pathology then MRI would be recommended.
--- NOTE | 2020-06-02 14:19 | EDPHYS ---
Physician Documentation [facility] Name: Scarlett Felton Age: 55 yrs Sex: Female : 1965 Arrival Date: 06/02/2020 Time: 12:49 Bed 6 Private MD: Suresh Saxena V ED Physician Jose Eduardo Barnes HPI: 06/02 13:43 This 55 yrs old Female presents to ER via Ambulatory with complaints of jr8 Numbness Of Hand, Shoulder Injury. 13:43 pt presents to ER for neck pain and numbness/tingling down both arms. The pt states jr8 that she was picking up a large linen bag on Saturday, and suddenly felt a "pop" in her neck when lifting the bag. States that she had numbness down both arms, but now has severe tingling in her fingers. States that her fingers became swollen this morning and had difficulty removing her rings. Denies LOC, difficulty ambulating, and loss of bowel or bladder.. 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 - Social history:: Smoking status: Patient reports the use of cigarette tobacco products, smokes one pack cigarettes per day. ROS: 14:16 Eyes: Negative for injury, pain, redness, and discharge, ENT: Negative for injury, jr8 pain, and discharge, Cardiovascular: Negative for chest pain, palpitations, and edema, Respiratory: Negative for shortness of breath, cough, wheezing, and pleuritic chest pain, Abdomen/GI: Negative for abdominal pain, nausea, vomiting, diarrhea, and constipation, Back: Negative for injury and pain, MS/Extremity: Negative for injury and deformity, Skin: Negative for injury, rash, and discoloration. 14:16 Neck: Positive for pain with movement, pain at rest, bony tenderness. 14:16 Neuro: Positive for tingling, of the right arm and left arm. Exam: 14:16 Eyes: Pupils equal round and reactive to light, extra-ocular motions intact. Lids and jr8 lashes normal. Conjunctiva and sclera are non-icteric and not injected. Cornea within normal limits. Periorbital areas with no swelling, redness, or edema. ENT: Nares patent. No nasal discharge, no septal abnormalities noted. Tympanic membranes are normal and external auditory canals are clear. Oropharynx with no redness, swelling, or masses, exudates, or evidence of obstruction, uvula midline. Mucous membranes moist. Cardiovascular: Regular rate and rhythm with a normal S1 and S2. No gallops, murmurs, or rubs. Normal PMI, no JVD. No pulse deficits. Respiratory: Lungs have equal breath sounds bilaterally, clear to auscultation and percussion. No rales, rhonchi or wheezes noted. No increased work of breathing, no retractions or nasal flaring. Abdomen/GI: Soft, non-tender, with normal bowel sounds. No distension or tympany. No guarding or rebound. No evidence of tenderness throughout. Back: No spinal tenderness. No costovertebral tenderness. Full range of motion. Skin: Warm, dry with normal turgor. Normal color with no rashes, no lesions, and no evidence of cellulitis. MS/ Extremity: Pulses equal, no cyanosis. Neurovascular intact. Full, normal range of motion. Neuro: Awake and alert, GCS 15, oriented to person, place, time, and situation. Cranial nerves II-XII grossly intact. Motor strength 5/5 in all extremities. Sensory grossly intact. Cerebellar exam normal. Normal gait. 14:16 Neck: External neck: tenderness, that is mild, of the left mid cervical area, right mid cervical area, left trapezius, lower cervical area and right trapezius, C-spine: appears grossly normal, Thyroid: appears normal, Trachea: is midline with no obvious abnormalities, ROM/movement: pain, that is mild, with any movement. Vital Signs: 13:28 BP 195 / 86; Pulse 84; Resp 16; Temp 98.4(TE); Pulse Ox 99% on R/A; Weight 74.84 kg; ss Height 5 ft. 4 in. (162.56 cm); Pain 9/10; 14:19 BP 137 / 75; Pulse 76; Resp 17; Pulse Ox 97% on R/A; Pain 9/10; jl7 14:55 Pain 6/10; jl7 13:28 Body Mass Index 28.32 (74.84 kg, 162.56 cm) MDM: 13:36 Patient medically screened. jr8 14:16 Data reviewed: vital signs, nurses notes, radiologic studies, CT scan, and as a result, jr8 I will discharge patient. Data interpreted: Pulse oximetry: on room air is 99 %. Interpretation: normal. Counseling: I had a detailed discussion with the patient and/or guardian regarding: the historical points, exam findings, and any diagnostic results supporting the discharge/admit diagnosis, radiology results, the need for outpatient follow up, a neurologist, to return to the emergency department if symptoms worsen or persist or if there are any questions or concerns that arise at home. 06/02 13:43 Order name: CT C Spine; Complete Time: 14:14 jr8 Administered Medications: 14:19 Drug: TORadol 30 mg Route: IM; Site: left deltoid; jl7 14:55 Follow up: Pain 6/10 Adult; Response: No adverse reaction; Pain is decreased jl7 Disposition: 17:32 Co-signature as Attending Physician, Jose Eduardo Barnes MD. rn Disposition: 06/02/20 14:18 Discharged to Home. Impression: Cervicalgia, Cervical disc disorder with radiculopathy. - Condition is Stable. - Discharge Instructions: Cervical Radiculopathy. - Prescriptions for meloxicam 15 mg Oral tablet - take 1 tablet by ORAL route once daily As needed; 20 tablet. Robaxin 500 mg Oral Tablet - take 2 tablet by ORAL route every 6 hours As needed; 40 tablet. Medrol (Dio) 4 mg Oral Tablets, Dose Pack - take 1 tablet by ORAL route as directed - follow package instructions; 1 packet. - Medication Reconciliation Form, Thank You Letter, Antibiotic Education, Prescription Opioid Use, Work release form form. - Follow up: Suresh Saxena MD; When: 1 week; Reason: Recheck today's complaints, Continuance of care, Re-evaluation by your physician. - Problem is new. - Symptoms have improved. Signatures: Dispatcher [employer] EDJose Eduardo Maravilla MD MD rn Smirch, Shelby, RN RN ss Roszak, Josh, PA PA jr8 Fazal Kamara RN RN jl7 Corrections: (The following items were deleted from the chart) 14:55 14:18 06/02/2020 14:18 Discharged to Home. Impression: Cervicalgia; Cervical disc jl7 disorder with radiculopathy. Condition is Stable. Forms are Medication Reconciliation Form, Thank You Letter, Antibiotic Education, Prescription Opioid Use. Follow up: Suresh Saxena; When: 1 week; Reason: Recheck today's complaints, Continuance of care, Re-evaluation by your physician. Problem is new. Symptoms have improved. jr8
--- NOTE | 2020-06-02 14:19 | ER ---
Nurse's Notes [facility] Name: Scarlett Felton Age: 55 yrs Sex: Female : 1965 Arrival Date: 06/02/2020 Time: 12:49 Bed 6 Private MD: Suresh Saxena V Diagnosis: Cervicalgia;Cervical disc disorder with radiculopathy Presentation: 06/02 13:28 Chief complaint: Patient states: pain across both shoulders that radiates down both ss arms with intermittent numbness. 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 Coronavirus screen: Client denies travel out of the [place] in the last 14 days. Ebola Screen: Patient denies exposure to infectious person. Patient denies travel to an Ebola-affected area in the 21 days before illness onset. Initial Sepsis Screen: Does the patient meet any 2 criteria? No. Patient's initial sepsis screen is negative. Does the patient have a suspected source of infection? No. Patient's initial sepsis screen is negative. Risk Assessment: Do you want to hurt yourself or someone else? Patient reports no desire to harm self or others. Onset of symptoms was May 24, 2020. 13:28 Method Of Arrival: Ambulatory ss 13:28 Acuity: ITALIA 4 ss HHA: 14:49 LMP N/A - tw2 Historical: - Allergies: 13:31 No Known Allergies; ss - PMHx: 13:31 Anxiety; Depression; Chronic pain; Hernia; Hyperlipidemia; Hypertension; ss - PSHx: 13:31 Hernia repair; Cholecystectomy; ss - Immunization history:: Adult Immunizations up to date. - Social history:: Smoking status: Patient reports the use of cigarette tobacco products, smokes one pack cigarettes per day. Screenin:51 Abuse screen: Denies threats or abuse. Nutritional screening: No deficits noted. tw2 Tuberculosis screening: No symptoms or risk factors identified. Fall Risk None identified. Assessment: 13:32 General: Appears in no apparent distress. Behavior is calm, cooperative, appropriate tw2 for age. Pain: Complains of pain in right trapezius and lower cervical area and left trapezius and right mid cervical area and left mid cervical area. Neuro: Level of Consciousness is awake, alert, obeys commands, Oriented to person, place, time, situation. Cardiovascular: Capillary refill < 3 seconds Patient's skin is warm and dry. Respiratory: Airway is patent Respiratory effort is even, unlabored, Respiratory pattern is regular, symmetrical. GI: No signs and/or symptoms were reported involving the gastrointestinal system. : No signs and/or symptoms were reported regarding the genitourinary system. EENT: No signs and/or symptoms were reported regarding the EENT system. Derm: No signs and/or symptoms reported regarding the dermatologic system. Musculoskeletal: Range of motion: intact in all extremities, Reports pain in right trapezius and left trapezius and left arm and right arm. 14:20 Reassessment: Patient appears in no apparent distress at this time. No changes from jl7 previously documented assessment. Patient and/or family updated on plan of care and expected duration. Pain level reassessed. Patient is alert, oriented x 3, equal unlabored respirations, skin warm/dry/pink. Vital Signs: 13:28 BP 195 / 86; Pulse 84; Resp 16; Temp 98.4(TE); Pulse Ox 99% on R/A; Weight 74.84 kg; ss Height 5 ft. 4 in. (162.56 cm); Pain 9/10; 14:19 BP 137 / 75; Pulse 76; Resp 17; Pulse Ox 97% on R/A; Pain 9/10; jl7 14:55 Pain 6/10; jl7 13:28 Body Mass Index 28.32 (74.84 kg, 162.56 cm) ED Course: 12:49 Patient arrived in ED. ag5 12:50 Suresh Saxena MD is Private Physician. ag5 13:31 Triage completed. ss 13:31 Arm band placed on right wrist. ss 13:32 Bed in low position. Call light in reach. Pulse ox on. NIBP on. tw2 13:36 Jeremie Medina PA is PHCP. jr8 13:36 Jose Eduardo Barnes MD is Attending Physician. jr8 13:54 Fazal Kamara, VICENTA is Primary Nurse. jl7 13:57 CT C Spine In Process Unspecified. EDMS 14:18 Suresh Saxena MD is Referral Physician. jr8 14:54 No provider procedures requiring assistance completed. Patient did not have IV access jl7 during this emergency room visit. Administered Medications: 14:19 Drug: TORadol 30 mg Route: IM; Site: left deltoid; jl7 14:55 Follow up: Pain 02/16 Adult; Response: No adverse reaction; Pain is decreased jl7 Outcome: 14:18 Discharge ordered by . konstantin 14:54 Discharged to home ambulatory. jl7 14:54 Condition: stable 14:54 Discharge instructions given to patient, Instructed on discharge instructions, follow up and referral plans. medication usage, Demonstrated understanding of instructions, follow-up care, medications, Prescriptions given X 3. 14:55 Patient left the ED. jl7 Signatures: Dispatcher [employer] EDMS Claire Mccullough RN RN Jeremie Begum PA PA jr8 Chantelle Cheema RN RN tw2 Fazal Kamara RN RN jl7 Swati Petty 5
[2020-06-02] MEDS ORDERED: KETOROLAC 30 MG/ML INJ ONE (14:28)
[2020-06-02 15:27] VITALS: TEMP 98.4
[2020-06-02 15:32] VITALS: BP 137/75; O2SAT 97
== END 2020-06-02 14:55 | disposition home or self-care (01) ==
LOC: ER 12:47
DX: M50.10 Cervical disc disorder with radiculopathy, unspecified cervical region (principal); I10 Essential (primary) hypertension; F17.210 Nicotine dependence, cigarettes, uncomplicated
CPT/HCPCS: 72125; 96372; 99284

== ENCOUNTER 2020-08-21 04:26 | Emergency (ER) | payer OTHER ==
[2020-08-21 05:11] LABS: Basophils % 0.5 % (0-1.3); Hematocrit 36.6 % (36.0-45.0); Lymphocytes % 14.2 % (15.3-44.8); MPV 8.5 fL (7.6-11.3); RBC Red Blood Cell Count 3.93 M/uL (3.86-4.86)
[2020-08-21 05:23] LABS: Protime INR 0.97
[2020-08-21 05:35] LABS: ALT/SGPT 21 U/L (12-78); AST/SGOT 28 U/L (15-37); Albumin 3.7 g/dL (3.4-5.0); Alkaline Phosphatase 110 U/L (45-117); BUN Blood Urea Nitrogen 14 mg/dL (7-18); Bicarbonate 26 mmol/L (21-32); Bilirubin Direct < 0.1 mg/dL (0-0.2); Bilirubin Total 0.2 mg/dL (0.2-1.0); Glucose Level 102 mg/dL (74-106); Magnesium 1.5 mg/dL (1.8-2.4); NT PRO-BNP 130 pg/mL (<125); Potassium 3.3 mmol/L (3.5-5.1); Protein, Total 7.2 g/dL (6.4-8.2); Sodium Level 141 mmol/L (136-145); Troponin (Emerg Dept Use Only) < 0.02 ng/mL (0.0-0.045)
[2020-08-21] MEDS ORDERED: ACETAMINOPHEN 500 MG TAB ONE (05:54)
--- NOTE | 2020-08-21 07:48 | ER ---
Nurse's Notes [facility] Name: Scarlett Felton Age: 55 yrs Sex: Female : 1965 Arrival Date: 08/21/2020 Time: 04:27 Bed 5 Private MD: Surehs Saxena V Diagnosis: Other viral pneumonia-covid 19 positive;Fever, unspecified;Cough Presentation: 08/21 04:41 Chief complaint: Patient states: Patient complaint of general body aches, chest pain on lp1 breathing, dizziness, BLAKELY, chills; temp of 100.3 at home. Coronavirus screen: Client denies travel out of the [place] in the last 14 days. chills, fatigue, fever, headache, muscle pain, shaking with chills, Client presents with at least one sign or symptom that may indicate coronavirus-19. Standard/surgical mask placed on the client. Provider contacted for isolation considerations. Ebola Screen: No symptoms or risks identified at this time. Initial Sepsis Screen: Does the patient meet any 2 criteria? Temp <36.0*C (96.8*F)) or > 38.3*C (100.9*F). Does the patient have a suspected source of infection? No. Patient's initial sepsis screen is negative. Risk Assessment: Do you want to hurt yourself or someone else? Patient reports no desire to harm self or others. Onset of symptoms was August 21, 2020. 04:41 Method Of Arrival: Ambulatory lp1 04:41 Acuity: ITALIA 3 lp1 Historical: - Allergies: 04:45 No Known Allergies; lp1 - Home Meds: 04:45 gabapentin 600 mg Oral tab 1 tab 3 times per day [Active]; lisinopril 20 mg Oral tab 1 lp1 tab once daily [Active]; citalopram 40 mg tab 1 tab once daily [Active]; atorvastatin 20 mg Oral tab 1 tab once daily [Active]; dicyclomine 10 mg Oral cap 1 cap daily [Active]; bupropion HCl 150 mg Oral TbER 1 tab once daily [Active]; Xanax 1 mg Oral tab 1 tab daily [Active]; multivitamin Oral tab daily [Active]; - PMHx: 04:45 Anxiety; Chronic pain; Depression; Hernia; Hyperlipidemia; Hypertension; lp1 - PSHx: 04:45 Hernia repair; Cholecystectomy; lp1 - Immunization history:: Adult Immunizations up to date. - Social history:: Smoking status: Patient reports the use of cigarette tobacco products, smokes one pack cigarettes per day. Screenin:03 Abuse screen: Denies threats or abuse. Denies injuries from another. Nutritional lp1 screening: No deficits noted. Tuberculosis screening: No symptoms or risk factors identified. Fall Risk None identified. Assessment: 04:45 General: Appears in no apparent distress. Behavior is appropriate for age. Pain: lp1 Complains of pain in general body Pain does not radiate. Pain currently is 8 out of 10 on a pain scale. Pain began gradually. Neuro: Level of Consciousness is awake, alert, obeys commands, Oriented to person, place, time, situation, Gait is steady, Reports dizziness, headache. Cardiovascular: Patient's skin is warm and dry. Respiratory: Respiratory effort is even, unlabored, Breath sounds are clear bilaterally. GI: No signs and/or symptoms were reported involving the gastrointestinal system. : No signs and/or symptoms were reported regarding the genitourinary system. EENT: No signs and/or symptoms were reported regarding the EENT system. Derm: Skin is intact, Skin is dry, Skin is normal. Musculoskeletal: No deficits noted. 06:30 Reassessment: Patient appears in no apparent distress at this time. Neuro: Level of lp1 Consciousness is awake, alert, obeys commands, Oriented to person, place, time, situation. Respiratory: Respiratory effort is even, unlabored. Derm: Skin is pink, warm \T\ dry. 07:14 Reassessment: Awaiting repeat troponin, pt updated. jl7 Vital Signs: 04:41 BP 147 / 76; Pulse 97; Resp 20; Temp 103(O); Pulse Ox 96% on R/A; Weight 79.83 kg (R); lp1 Height 5 ft. 4 in. (162.56 cm); Pain 8/10; 05:46 BP 164 / 68; Pulse 84; Resp 20; Pulse Ox 96% on R/A; lp1 06:29 BP 164 / 69; Pulse 92; Resp 17; Temp 99(O); Pulse Ox 96% on R/A; lp1 07:14 BP 154 / 60; Pulse 82; Resp 19; Temp 98.7; Pulse Ox 95% ; jl7 04:41 Body Mass Index 30.21 (79.83 kg, 162.56 cm) lp1 ED Course: 04:27 Patient arrived in ED. am2 04:27 Suresh Saxena MD is Private Physician. am2 04:41 Vinita Mckeon RN is Primary Nurse. lp1 04:43 Triage completed. lp1 04:43 Arm band placed on. lp1 04:51 Pavan Brooks MD is Attending Physician. tw4 05:00 Inserted saline lock: 22 gauge in left wrist, using aseptic technique. Blood collected. ds4 Missed attempt(s): 22 gauge in right forearm. Bleeding controlled, band aid applied, catheter tip intact. 05:03 Patient has correct armband on for positive identification. Placed in gown. Bed in low lp1 position. Call light in reach. vehicle monitor technician on. Pulse ox on. NIBP on. 05:03 Patient maintains SpO2 saturation greater than 95% on room air. lp1 05:06 Flu Sent. ds4 05:11 Chest Single View XRAY In Process Unspecified. EDMS 06:31 No provider procedures requiring assistance completed. lp1 07:00 Report received from VICENTA Talamantes. jl7 07:17 Attending Physician role handed off by Pavan Brooks MD torito 07:17 Shola Olivera MD is Attending Physician. torito 07:46 Suresh Saxena MD is Referral Physician. torito 08:18 IV discontinued, intact, bleeding controlled, No redness/swelling at site. Pressure jl7 dressing applied. Administered Medications: 05:47 Drug: Tylenol 1000 mg Route: PO; lp1 06:30 Follow up: Response: Temperature is decreased lp1 08:00 Drug: Pepcid 20 mg Route: IVP; Site: left wrist; jl7 08:17 Follow up: Response: No adverse reaction jl7 08:02 Drug: Decadron - Dexamethasone 10 mg Route: IVP; Site: left wrist; jl7 08:17 Follow up: Response: No adverse reaction jl7 08:05 Drug: Rocephin 1 grams Route: IV; Rate: per protocol; Site: left wrist; jl7 08:08 Follow up: Response: No adverse reaction; IV Status: Completed infusion jl7 08:10 Drug: Zithromax 500 mg Route: PO; jl7 08:17 Follow up: Response: No adverse reaction 08:10 Drug: Aspirin Chewable Tablet 162 mg Route: PO; 08:17 Follow up: Response: No adverse reaction Outcome: 07:48 Discharge ordered by . torito 08:17 Discharged to home ambulatory. 08:17 Condition: stable 08:17 Discharge instructions given to patient, Instructed on discharge instructions, follow up and referral plans. medication usage, Demonstrated understanding of instructions, follow-up care, medications, Prescriptions given X 4. 08:18 Patient left the ED. Signatures: Dispatcher [employer] EDMS Shola Olivera MD MD cha Pena, Laura, RN RN lp1 Toni Tipton ds4 Fazal Kamara RN RN jl7 Mar Peterson Terrence, MD MD tw4 Corrections: (The following items were deleted from the chart) 05:25 05:06 CORONAVIRUS+MR.LAB.BRZ drawn and sent. 4 EDTN
--- NOTE | 2020-08-21 07:49 | EDPHYS ---
Physician Documentation [facility] Name: Scarlett Felton Age: 55 yrs Sex: Female : 1965 Arrival Date: 08/21/2020 Time: 04:27 Bed 5 Private MD: Suresh Saxena V ED Physician Shola Olivera HPI: 08/21 06:41 This 55 yrs old Female presents to ER via Ambulatory with complaints of Chest tw4 Pain, Fever. 06:41 The patient or guardian reports chest pain that is located primarily in the anterior tw4 chest wall. The patient or guardian reports chest pain that is located primarily in the anterior chest wall, right. Onset: today. The pain does not radiate. Associated signs and symptoms: The patient has no apparent associated signs or symptoms. The chest pain is described as sharp. Duration: The patient or guardian reports a single episode. Historical: - Allergies: 04:45 No Known Allergies; lp1 - Home Meds: 04:45 gabapentin 600 mg Oral tab 1 tab 3 times per day [Active]; lisinopril 20 mg Oral tab 1 lp1 tab once daily [Active]; citalopram 40 mg tab 1 tab once daily [Active]; atorvastatin 20 mg Oral tab 1 tab once daily [Active]; dicyclomine 10 mg Oral cap 1 cap daily [Active]; bupropion HCl 150 mg Oral TbER 1 tab once daily [Active]; Xanax 1 mg Oral tab 1 tab daily [Active]; multivitamin Oral tab daily [Active]; - PMHx: 04:45 Anxiety; Chronic pain; Depression; Hernia; Hyperlipidemia; Hypertension; lp1 - PSHx: 04:45 Hernia repair; Cholecystectomy; lp1 - Immunization history:: Adult Immunizations up to date. - Social history:: Smoking status: Patient reports the use of cigarette tobacco products, smokes one pack cigarettes per day. ROS: 06:41 Constitutional: Negative for fever, chills, and weight loss, Eyes: Negative for injury, tw4 pain, redness, and discharge, Cardiovascular: Negative for chest pain, palpitations, and edema, Abdomen/GI: Negative for abdominal pain, nausea, vomiting, diarrhea, and constipation, Back: Negative for injury and pain, MS/Extremity: Negative for injury and deformity, Skin: Negative for injury, rash, and discoloration, Neuro: Negative for headache, weakness, numbness, tingling, and seizure. Exam: 06:41 Constitutional: This is a well developed, well nourished patient who is awake, alert, tw4 and in no acute distress. Head/Face: Normocephalic, atraumatic. Chest/axilla: Normal chest wall appearance and motion. Nontender with no deformity. No lesions are appreciated. Cardiovascular: Regular rate and rhythm with a normal S1 and S2. No gallops, murmurs, or rubs. Normal PMI, no JVD. No pulse deficits. Respiratory: Lungs have equal breath sounds bilaterally, clear to auscultation and percussion. No rales, rhonchi or wheezes noted. No increased work of breathing, no retractions or nasal flaring. Abdomen/GI: Soft, non-tender, with normal bowel sounds. No distension or tympany. No guarding or rebound. No evidence of tenderness throughout. Back: No spinal tenderness. No costovertebral tenderness. Full range of motion. MS/ Extremity: Pulses equal, no cyanosis. Neurovascular intact. Full, normal range of motion. Neuro: Awake and alert, GCS 15, oriented to person, place, time, and situation. Cranial nerves II-XII grossly intact. Motor strength 5/5 in all extremities. Sensory grossly intact. Cerebellar exam normal. Normal gait. 07:51 Musculoskeletal/extremity: DVT Exam: No signs of deep vein thrombosis. no pain, no torito swelling, no tenderness, negative Homans' sign noted on exam, no appreciated bluish discoloration, no erythema, no increased warmth. 07:51 ECG was reviewed by the Attending Physician. [facility] Vital Signs: 04:41 BP 147 / 76; Pulse 97; Resp 20; Temp 103(O); Pulse Ox 96% on R/A; Weight 79.83 kg (R); lp1 Height 5 ft. 4 in. (162.56 cm); Pain 8/10; 05:46 BP 164 / 68; Pulse 84; Resp 20; Pulse Ox 96% on R/A; lp1 06:29 BP 164 / 69; Pulse 92; Resp 17; Temp 99(O); Pulse Ox 96% on R/A; lp1 07:14 BP 154 / 60; Pulse 82; Resp 19; Temp 98.7; Pulse Ox 95% ; jl7 04:41 Body Mass Index 30.21 (79.83 kg, 162.56 cm) lp1 MDM: 04:55 Patient medically screened. tw4 06:41 Differential diagnosis: unstable angina. HEART Score: History: Slightly Suspicious (0), tw4 ECG: Non specific repolarization disturbance / LBTB / PM (1), Age: > 45 and < 65 years (1), Risk Factors: No Risk Factors Known (0), Troponin: < or = 1 x Normal Limit (0), Total Score = 2. Data reviewed: vital signs, nurses notes. Data interpreted: Pulse oximetry: Interpretation: normal. Counseling: I had a detailed discussion with the patient and/or guardian regarding: the historical points, exam findings, and any diagnostic results supporting the discharge/admit diagnosis, lab results, radiology results. 07:25 Patient medically screened. [facility] 08/21 04:49 Order name: Flu; Complete Time: 06:36 [facility] 08/21 06:37 Interpretation: Within normal limits. [facility] 08/21 04:51 Order name: Basic Metabolic Panel; Complete Time: 06:36 [facility] 08/21 06:36 Interpretation: Normal except: K 3.3; GFR 46; CL 108. [facility] 08/21 04:51 Order name: CBC with Diff; Complete Time: 06:36 [facility] 08/21 06:36 Interpretation: Normal except: LYM% 14.2; ZULLY% 77.8. [facility] 08/21 04:51 Order name: LFT's; Complete Time: 06:36 [facility] 08/21 06:37 Interpretation: Within normal limits. [facility] 08/21 04:51 Order name: Magnesium; Complete Time: 06:36 [facility] 08/21 06:37 Interpretation: Abnormal: MG 1.5. [facility] 08/21 04:50 Order name: Chest Single View XRAY 1 08/21 04:51 Order name: NT PRO-BNP; Complete Time: 06:36 [facility] 08/21 06:37 Interpretation: Abnormal: NT PRO-BNP 130. [facility] 08/21 04:51 Order name: PT-INR; Complete Time: 06:36 [facility] 08/21 06:37 Interpretation: Within normal limits: PT 11.5. [facility] 08/21 04:51 Order name: Troponin (emerg Dept Use Only); Complete Time: 06:36 tw4 08/21 06:10 Order name: SARS-COV-2 RT PCR; Complete Time: 06:36 EDMS 08/21 06:37 Interpretation: Abnormal: SARSCOV2 RT PCR POSITIVE. tw4 08/21 06:48 Order name: Troponin I tw08/21 04:51 Order name: Cardiac monitoring; Complete Time: 05:00 4 08/21 04:51 Order name: EKG - Nurse/Tech; Complete Time: 05:03 08/21 04:51 Order name: IV Saline Lock; Complete Time: 05:03 tw4 08/21 04:51 Order name: Labs collected and sent; Complete Time: 05:03 4 08/21 04:51 Order name: O2 Per Protocol; Complete Time: 05:00 08/21 04:51 Order name: O2 Sat Monitoring; Complete Time: 05:00 tw4 EC:51 Rate is 93 beats/min. Rhythm is regular. QRS Velpen is Normal. DC interval is normal. QRS torito interval is normal. QT interval is normal. No Q waves. T waves are Normal. No ST changes noted. Clinical impression: NSR w/ Non-specific ST/T Changes and No evidence of ischemia. Interpreted by me. Reviewed by me. Administered Medications: 05:47 Drug: Tylenol 1000 mg Route: PO; lp1 06:30 Follow up: Response: Temperature is decreased lp1 08:00 Drug: Pepcid 20 mg Route: IVP; Site: left wrist; jl7 08:17 Follow up: Response: No adverse reaction jl7 08:02 Drug: Decadron - Dexamethasone 10 mg Route: IVP; Site: left wrist; jl7 08:17 Follow up: Response: No adverse reaction jl7 08:05 Drug: Rocephin 1 grams Route: IV; Rate: per protocol; Site: left wrist; jl7 08:08 Follow up: Response: No adverse reaction; IV Status: Completed infusion jl7 08:10 Drug: Zithromax 500 mg Route: PO; jl7 08:17 Follow up: Response: No adverse reaction jl7 08:10 Drug: Aspirin Chewable Tablet 162 mg Route: PO; jl7 08:17 Follow up: Response: No adverse reaction jl7 Disposition: 08/21/20 07:48 Discharged to Home. Impression: Other viral pneumonia - covid 19 positive, Fever, unspecified, Cough. - Condition is Stable. - Discharge Instructions: Fever, Adult, Community-Acquired Pneumonia, Adult, Cough, Adult, [id number], Aspirin and Your Heart, Cough, Adult, Fever, Adult, [id number], COVID-19. - Prescriptions for dexamethasone 2 mg Oral tablet - take 1 tablet by ORAL route 3 times per day; 15 tablet. Pepcid 20 mg Oral Tablet - take 1 tablet by ORAL route every 12 hours for 10 days; 20 tablet. Albuterol Sulfate 90 mcg/actuation - inhale 1-2 puff by INHALATION route every 4-6 hours; 1 Inhaler. Zithromax 500 mg Oral Tablet - take 1 tablet by ORAL route once daily for 4 days; 4 tablet. - Medication Reconciliation Form, Thank You Letter, Antibiotic Education, Prescription Opioid Use, Work release form form. - Follow up: Suresh Saxena MD; When: 2 - 3 days; Reason: Recheck today's complaints, Continuance of care, Re-evaluation by your physician. - Problem is new. - Symptoms have improved. Signatures: Dispatcher [employer] EDMN Shola Olivera MD MD cha Pena, Laura RN RN lp1 Fazal Kamara RN RN jl7 Pavan Brooks MD MD tw4 Corrections: (The following items were deleted from the chart) 04:55 04:52 Chest Single View+RAD.RAD.BRZ ordered. [facility] EDMN 05:25 04:50 CORONAVIRUS+MR.LAB.BRZ ordered. [facility] 08:18 07:48 08/21/2020 07:48 Discharged to Home. Impression: Other viral pneumonia - covid 19 jl7 positive; Fever, unspecified; Cough. Condition is Stable. Forms are Medication Reconciliation Form, Thank You Letter, Antibiotic Education, Prescription Opioid Use. Follow up: Suresh Saxena; When: 2 - 3 days; Reason: Recheck today's complaints, Continuance of care, Re-evaluation by your physician. Problem is new. Symptoms have improved. torito
[2020-08-21] MEDS ORDERED: FAMOTIDINE 20 MG/2 ML VIAL IV ONE (08:14)
[2020-08-21] MEDS ORDERED: ASPIRIN 81 MG CHEWABLE TABLET ONE (08:14)
[2020-08-21] MEDS ORDERED: CEFTRIAXONE/SWI 1gm 1 GM/10 ML SYR ONE (08:14)
[2020-08-21] MEDS ORDERED: dexAMETHasone 10 MG/ML VIAL ONE (08:14)
[2020-08-21] MEDS ORDERED: AZITHROMYCIN 250 MG TAB ONE (08:14)
--- NOTE | 2020-08-21 11:13 | RAD REPORT ---
EXAM DESCRIPTION: RAD - Chest Single View - 08/21/2020 5:10 am CLINICAL HISTORY: CHEST PAIN COMPARISON: Portable July 2019 TECHNIQUE: AP portable chest image was obtained 08/21/2020 5:10 am . FINDINGS: No dense consolidation seen. However, there are patchy areas of airspace opacification in each lung base in the upper right lung field. Trachea is midline. Heart and vasculature are normal. N o measurable pleural effusion and no pneumothorax. No acute bony abnormality seen. No acute aortic fi ndings suspected. IMPRESSION: Patchy lung parenchymal opacities suspicious for viral pneumonia. This would include COV ID-19 pneumonia.
[2020-08-24 23:06] VITALS: BP 154/60; TEMP 98.7; O2SAT 95
== END 2020-08-21 08:18 | disposition home or self-care (01) ==
LOC: ER 04:26
DX: U07.1 COVID-19 (principal); J12.89 Other viral pneumonia; I10 Essential (primary) hypertension; F41.8 Other specified anxiety disorders; F17.210 Nicotine dependence, cigarettes, uncomplicated
CPT/HCPCS: 93005; 85025; 80048; 36415; 83735; 85610; 80076; 84484 ×2; 83880; 87804 ×2; 71045; 96375; 96374; 99285; U0003; J1100; J0696

== ENCOUNTER 2020-09-28 01:33 | Emergency (ER) | payer OTHER, SELFPAY ==
[2020-09-28] MEDS ORDERED: HYDROCODONE/APAP 7.5/325 MG TAB ONE (02:25)
[2020-09-28] MEDS ORDERED: KETOROLAC 30 MG/ML INJ ONE (02:26)
--- NOTE | 2020-09-28 03:30 | EDPHYS ---
Physician Documentation [facility] Name: Scarlett Felton Age: 55 yrs Sex: Female : 1965 Arrival Date: 09/28/2020 Time: 01:34 Bed 14 Private MD: ED Physician Pool Jha HPI: 09/28 03:28 This 55 yrs old Female presents to ER via Ambulatory with complaints of Fall ma2 Injury. 03:28 Details of fall: The patient fell from an upright position. Onset: The symptoms/episode ma2 began/occurred suddenly, 1 hour(s) ago. Severity of symptoms: At their worst the symptoms were mild, moderate, in the emergency department the symptoms are unchanged. The patient has not experienced similar symptoms in the past. 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 LMP N/A - , had ablation and D\T\C 15 years ago rr5 Historical: - Allergies: 01:40 No Known Allergies; rr5 - Home Meds: 01:40 atorvastatin 20 mg Oral tab 1 tab once daily [Active]; bupropion HCl 150 mg Oral TbER 1 rr5 tab once daily [Active]; dicyclomine 10 mg Oral cap 1 cap daily [Active]; citalopram 40 mg tab 1 tab once daily [Active]; lisinopril 20 mg Oral tab 1 tab once daily [Active]; gabapentin 600 mg Oral tab 1 tab 3 times per day [Active]; multivitamin Oral tab daily [Active]; Xanax 1 mg Oral tab 1 tab daily [Active]; - PMHx: 01:40 Anxiety; Chronic pain; Depression; Hernia; Hyperlipidemia; Hypertension; rr5 - PSHx: 01:40 Hernia repair; Cholecystectomy; rr5 - Immunization history:: Adult Immunizations up to date. - Social history:: Smoking status: Patient reports the use of cigarette tobacco products, smokes one-half pack cigarettes per day, Patient uses alcohol, occasionally. Patient/guardian denies using alcohol, street drugs, The patient lives with family. - Family history:: not pertinent. ROS: 03:28 Constitutional: Negative for fever, chills, and weight loss. ma2 03:28 All other systems are negative. Exam: 03:28 Constitutional: This is a well developed, well nourished patient who is awake, alert, ma2 and in no acute distress. Chest/axilla: Normal chest wall appearance and motion. Nontender with no deformity. No lesions are appreciated. Cardiovascular: Regular rate and rhythm with a normal S1 and S2. No gallops, murmurs, or rubs. Normal PMI, no JVD. No pulse deficits. Respiratory: Lungs have equal breath sounds bilaterally, clear to auscultation and percussion. No rales, rhonchi or wheezes noted. No increased work of breathing, no retractions or nasal flaring. Abdomen/GI: Soft, non-tender, with normal bowel sounds. No distension or tympany. No guarding or rebound. No evidence of tenderness throughout. Back: No spinal tenderness. No costovertebral tenderness. Full range of motion. Skin: Warm, dry with normal turgor. Normal color with no rashes, no lesions, and no evidence of cellulitis. MS/ Extremity: ttp on right elbow, rom is limited d/t pain Pulses equal, no cyanosis. Neurovascular intact. Full, normal range of motion. Neuro: Awake and alert, GCS 15, oriented to person, place, time, and situation. Cranial nerves II-XII grossly intact. Motor strength 5/5 in all extremities. Sensory grossly intact. Cerebellar exam normal. Normal gait. Vital Signs: 01:40 BP 158 / 72; Pulse 110; Resp 20; Temp 99; Pulse Ox 95% ; Weight 72.57 kg; Height 5 ft. rr5 4 in. (162.56 cm); Pain 10/10; 02:52 BP 151 / 70; Pulse 105; Resp 19; Pulse Ox 94% ; rr5 04:00 BP 142 / 71; Pulse 91; Resp 16; Pulse Ox 94% on R/A; jb4 01:40 Body Mass Index 27.46 (72.57 kg, 162.56 cm) rr5 MDM: 01:51 Patient medically screened. ma2 03:28 Differential diagnosis: abrasion, contusion, fracture, sprain, strain. Data reviewed: ma2 vital signs, nurses notes. Counseling: I had a detailed discussion with the patient and/or guardian regarding: the historical points, exam findings, and any diagnostic results supporting the discharge/admit diagnosis, the presence of at least one elevated blood pressure reading (>120/80) during this emergency department visit, the need for outpatient follow up. Response to treatment: the patient's symptoms have markedly improved after treatment. ED course: anterior and posterior fat pad sign is visualized on xr. no report is available at this time . 09/28 02:08 Order name: Elbow Right 3 View XRAY ma2 Administered Medications: 02:14 Drug: TORadol 60 mg Route: IM; Site: right gluteus; rr5 03:11 Follow up: Response: No adverse reaction rr5 02:14 Drug: Fortuna (7.5 mg-325 mg) 1 tabs {Note: rass 0.} Route: PO; rr5 03:11 Follow up: Response: No adverse reaction; Pain is decreased; RASS: Alert and Calm (0) rr5 Disposition: 09/28/20 03:30 Discharged to Home. Impression: Pain in right elbow. - Condition is Stable. - Discharge Instructions: Musculoskeletal Pain. - Prescriptions for Diclofenac Sodium 75 mg Oral Tablet Sustained Release - take 1 tablet by ORAL route 2 times per day; 30 tablet. - Work release form, Medication Reconciliation Form, Thank You Letter, Antibiotic Education, Prescription Opioid Use form. - Follow up: Private Physician; When: Tomorrow; Reason: If symptoms return, Continuance of care. Signatures: Dispatcher [employer] EDMS Adan Hernandez RN RN jb4 Pool Jha MD MD ma2 Richie Horta RN RN rr5 Corrections: (The following items were deleted from the chart) 03:41 03:30 09/28/2020 03:30 Discharged to Home. Impression: Pain in right elbow. Condition jb4 is Stable. Forms are Medication Reconciliation Form, Thank You Letter, Antibiotic Education, Prescription Opioid Use. Follow up: Private Physician; When: Tomorrow; Reason: If symptoms return, Continuance of care. ma2 05:02 03:41 09/28/2020 03:30 Discharged to Home. Impression: Pain in right elbow. Condition jb4 is Stable. Discharge Instructions: Musculoskeletal Pain. Prescriptions for Diclofenac Sodium 75 mg Oral Tablet Sustained Release - take 1 tablet by ORAL route 2 times per day; 30 tablet. and Forms are Medication Reconciliation Form, Thank You Letter, Antibiotic Education, Prescription Opioid Use. Follow up: Private Physician; When: Tomorrow; Reason: If symptoms return, Continuance of care. jb4
--- NOTE | 2020-09-28 03:30 | ER ---
Nurse's Notes [facility] Name: Scarlett Felton Age: 55 yrs Sex: Female : 1965 Arrival Date: 09/28/2020 Time: 01:34 Bed 14 Private MD: Diagnosis: Pain in right elbow Presentation: 09/28 01:40 Chief complaint: Patient states: I fell down around 9PM last night caught my right arm rr5 and left knee. 01:40 Coronavirus screen: Client denies travel out of the [place] in the last 14 days. At this rr5 time, the client does not indicate any symptoms associated with coronavirus-19. Ebola Screen: Patient negative for fever greater than or equal to 101.5 degrees Fahrenheit, and additional compatible Ebola Virus Disease symptoms Patient denies exposure to infectious person. Patient denies travel to an Ebola-affected area in the 21 days before illness onset. Initial Sepsis Screen: Does the patient meet any 2 criteria? No. Patient's initial sepsis screen is negative. Does the patient have a suspected source of infection? No. Patient's initial sepsis screen is negative. Risk Assessment: Do you want to hurt yourself or someone else? Patient reports no desire to harm self or others. Onset of symptoms was September 28, 2020. 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 LMP N/A - , had ablation and D\T\C 15 years ago rr5 Historical: - Allergies: 01:40 No Known Allergies; rr5 - Home Meds: 01:40 atorvastatin 20 mg Oral tab 1 tab once daily [Active]; bupropion HCl 150 mg Oral TbER 1 rr5 tab once daily [Active]; dicyclomine 10 mg Oral cap 1 cap daily [Active]; citalopram 40 mg tab 1 tab once daily [Active]; lisinopril 20 mg Oral tab 1 tab once daily [Active]; gabapentin 600 mg Oral tab 1 tab 3 times per day [Active]; multivitamin Oral tab daily [Active]; Xanax 1 mg Oral tab 1 tab daily [Active]; - PMHx: 01:40 Anxiety; Chronic pain; Depression; Hernia; Hyperlipidemia; Hypertension; rr5 - PSHx: 01:40 Hernia repair; Cholecystectomy; rr5 - Immunization history:: Adult Immunizations up to date. - Social history:: Smoking status: Patient reports the use of cigarette tobacco products, smokes one-half pack cigarettes per day, Patient uses alcohol, occasionally. Patient/guardian denies using alcohol, street drugs, The patient lives with family. - Family history:: not pertinent. Screenin:08 Abuse screen: Denies threats or abuse. Denies injuries from another. Nutritional rr5 screening: No deficits noted. Tuberculosis screening: No symptoms or risk factors identified. Fall Risk Fall in past 12 months (25 points). Total Ramires Fall Scale indicates Low Risk Score (25-44 pts). Fall prevention measures have been instituted. Side Rails Up X 2 Frequent Obs/Assesments occuring As available Patient and Family Educated on Fall Prevention Program and strategies. Assessment: 01:40 General: Appears in no apparent distress. uncomfortable, Behavior is calm, cooperative, rr5 appropriate for age. 01:40 Pain: Complains of pain in right elbow Pain radiates to right arm Pain currently is 10 rr5 out of 10 on a pain scale. Quality of pain is described as aching, Pain began suddenly, Is intermittent. Neuro: Level of Consciousness is awake, alert, obeys commands, Oriented to person, place, time, situation. Cardiovascular: Capillary refill < 3 seconds Patient's skin is warm and dry. Respiratory: Airway is patent Respiratory effort is even, unlabored, Respiratory pattern is regular, symmetrical. GI: No signs and/or symptoms were reported involving the gastrointestinal system. : No signs and/or symptoms were reported regarding the genitourinary system. EENT: No signs and/or symptoms were reported regarding the EENT system. Derm: Skin temperature is warm Wound noted left knee Wound is abrasion. Musculoskeletal: Capillary refill < 3 seconds. 03:00 Reassessment: Patient appears in no apparent distress at this time. Patient is alert, rr5 oriented x 3, equal unlabored respirations, skin warm/dry/pink. ice compress applied right forearm and left knee Patient states symptoms have improved. 04:00 Reassessment: Patient appears in no apparent distress at this time. Patient and/or jb4 family updated on plan of care and expected duration. Pain level reassessed. Patient is alert, oriented x 3, equal unlabored respirations, skin warm/dry/pink. 05:00 Reassessment: Patient appears in no apparent distress at this time. Patient and/or jb4 family updated on plan of care and expected duration. Pain level reassessed. Patient is alert, oriented x 3, equal unlabored respirations, skin warm/dry/pink. Vital Signs: 01:40 BP 158 / 72; Pulse 110; Resp 20; Temp 99; Pulse Ox 95% ; Weight 72.57 kg; Height 5 ft. rr5 4 in. (162.56 cm); Pain 10/10; 02:52 BP 151 / 70; Pulse 105; Resp 19; Pulse Ox 94% ; rr5 04:00 BP 142 / 71; Pulse 91; Resp 16; Pulse Ox 94% on R/A; jb4 01:40 Body Mass Index 27.46 (72.57 kg, 162.56 cm) rr5 ED Course: 01:34 Patient arrived in ED. cl3 01:43 Richie Horta, RN is Primary Nurse. rr5 01:45 Triage completed. rr5 01:46 Arm band placed on right wrist. rr5 01:51 Pool Jha MD is Attending Physician. ma2 02:08 Patient has correct armband on for positive identification. Bed in low position. Call rr5 light in reach. Side rails up X2. 02:29 Elbow Right 3 View XRAY In Process Unspecified. EDMS 03:10 No provider procedures requiring assistance completed. rr5 03:41 Patient transferred, IV remains in place. jb4 03:42 Primary Nurse role handed off by Richie Horta, VICENTA jb4 03:43 Adan Hernandez, RN is Primary Nurse. jb4 Administered Medications: 02:14 Drug: TORadol 60 mg Route: IM; Site: right gluteus; rr5 03:11 Follow up: Response: No adverse reaction rr5 02:14 Drug: Emerson (7.5 mg-325 mg) 1 tabs {Note: rass 0.} Route: PO; rr5 03:11 Follow up: Response: No adverse reaction; Pain is decreased; RASS: Alert and Calm (0) rr5 Outcome: 03:30 Discharge ordered by . ma2 05:00 Discharged to home ambulatory. jb4 05:00 Condition: stable 05:00 Discharge instructions given to patient, Instructed on discharge instructions, follow up and referral plans. medication usage, Demonstrated understanding of instructions, follow-up care, medications, Prescriptions given X 1. 05:02 Patient left the ED. jb4 Signatures: Dispatcher [employer] Adan Orozco, RN RN jb4 Pool Jha MD MD ma2 Richie Horta RN RN rr5 Gypsy Rios cl3 Corrections: (The following items were deleted from the chart) 03:43 03:41 Transferred by ground [facility]. to [facility], [facility], jb4 Transfer form completed. X-rays sent w/ patient. jb4 03:41 Condition: stable jb4 jb4 03:43 03:41 Discharge instructions given to patient, Instructed on the need for transfer, jb4 Demonstrated understanding of instructions, jb4 03:43 03:41 Patient left the ED. jb4 jb4
[2020-09-28 05:07] VITALS: TEMP 99
[2020-09-28 05:08] VITALS: BP 151/70; O2SAT 94
--- NOTE | 2020-09-28 10:28 | RAD REPORT ---
EXAM DESCRIPTION: RAD - Elbow Right 3 View - 09/28/2020 2:29 am CLINICAL HISTORY: PAIN Elbow Right 3 View COMPARISON: None. FINDINGS: 3 views of the right elbow. Elevation of the anterior elbow fat pad suggesting joint effus ion. Normal osseous mineralization. No definite fracture is identified. IMPRESSION: 1. No definite fracture identified however of elbow joint effusion suggests radiographic ally occult elbow fracture possibly representing the radial head. Continued radiographic follow-up re commended. Electronically signed by: Atilio Medeiros 09/28/2020 4:00 AM LEASING AGENT Due to temporary technical issues with the PACS/Fluency reporting system, reports are being signed by the in house radiologist without review as a courtesy to ensure prompt reporting. The interpreting r adiologist is fully responsible for the content of the report.
== END 2020-09-28 05:02 | disposition home or self-care (01) ==
LOC: ER 01:33
DX: M25.521 Pain in right elbow (principal); W19.XXXA Unspecified fall, initial encounter; Y93.9 Activity, unspecified; Y92.9 Unspecified place or not applicable; F41.8 Other specified anxiety disorders; E78.5 Hyperlipidemia, unspecified; I10 Essential (primary) hypertension
CPT/HCPCS: 96372; 99283